=== PATIENT | female | born 1950 | race African-American/Black ===

== ENCOUNTER 2017-06-23 12:39 | Inpatient (IN) | payer OTHER, BC ==
[~2017-06-23] VITALS: Ht 152.4 cm; Wt 114.3 kg
--- NOTE | ~2017-06-23 | HC ---
[facility] [place] [address] [place] [address] CONSULTATION Name: STEFFANY BHARDWAJ Room #: 456-P [facility] IN M.R.#: [id number] Admission: 06/23/17 Attend Phys: Carlos New DO Discharge: Date of : 50 Report #: [id number] THIS REPORT FOR: //name// CC: FAM unknown Carlos New REASON FOR CONSULTATION: End-stage renal disease. REASON FOR PRESENTATION: Right lower extremity swelling. HISTORY OF PRESENT ILLNESS: This is a 67-year-old with past medical history of end-stage renal disease, maintained on dialysis every Saturday, Saturday and Saturday. She has been complaining of bilateral lower extremity swelling in the last few weeks. We have been trying to resolve her edema with aggressive ultrafiltration and extra treatment. She continued to have issues with the swelling along with some dizziness, shortness of breath and lightheadedness when she finished her extra treatment on Saturday. She presented for further evaluation and management. Further evaluation revealed that she had DVT of the right lower extremity. She is being admitted to manage accordingly. ALLERGIES: 1. NIFEDIPINE. 2. PENICILLIN. 3. SULFA. MEDICATIONS: 1. Calcitriol. 2. Calcium carbonate. 3. Amlodipine. 4. Esomeprazole. PAST MEDICAL HISTORY: 1. Diabetes mellitus. 2. Status post gastric bypass surgery. 3. End-stage renal disease, maintained on hemodialysis every Saturday, Saturday and Saturday. 4. Status post colonoscopy. SOCIAL HISTORY: She denies drug or alcohol abuse. FAMILY HISTORY: Significant for diabetes mellitus. REVIEW OF SYSTEMS: GENERAL: Significant for lightheadedness, dizziness. CARDIOVASCULAR: No chest pain; however, she did have some shortness of breath. PULMONARY: Significant for shortness of breath. GASTROINTESTINAL: No nausea or vomiting. [facility] [address] [place] [address] CONSULTATION Name: STEFFANY BHARDWAJ Room #: 456-P [facility] IN M.R.#: [id number] Admission: 06/23/17 Attend Phys: Carlos New DO Discharge: Date of : 50 Report #: [id number] GENITOURINARY: No frequency, no urgency. MUSCULOSKELETAL: As per the history of present illness. SKIN: As per the history of present illness. PHYSICAL EXAMINATION: GENERAL: She is alert, oriented. VITAL SIGNS: Blood pressure 112/60; on arrival yesterday, her blood pressure was 85/49. HEAD AND NECK: No jugular venous distention. No bruit, no lymphadenopathy or thyromegaly. CHEST: Clear to auscultation bilaterally. CARDIOVASCULAR: Regular, with no rub. ABDOMEN: Soft, nontender with no hepatosplenomegaly. EXTREMITIES: Lower extremities, +2 edema. LABORATORY DATA: Laboratory values reviewed. Platelet is on the low side at 102,000. Hemoglobin is 11.1. Sodium 139, potassium 3.5 and creatinine 6.1. IMAGIN. Chest x-ray reviewed. No pulmonary edema. 2. Lower extremity venous studies reviewed, DVT present. ASSESSMENT, IMPRESSION AND PLAN: 1. End-stage renal disease. 2. Hypertension. 3. Diabetes mellitus. 4. Deep venous thrombosis. 5. Dialysis will be arranged for the patient every Saturday, Saturday and Saturday. 6. Resume outpatient medications. 7. Watch platelets and hemoglobin. 8. Anticoagulation. <ELECTRONICALLY SIGNED> By: Anastacia Gonzalez MD 06/26/17 0817 0927 1048 Anastacia Gonzalez MD /nt
--- NOTE | ~2017-06-23 | EKG ---
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1950 Requested By: Carlos New Order Number: [id number] MD: Daniel Willis Measurements Intervals [place] Rate: 93 P: 18 DE: 149 QRS: 22 QRSD: 100 T: 20 QT: 384 QTc: 478 Interpretive Statements Sinus rhythm Borderline prolonged QT interval Artifact in lead(s) I,II,aVR,aVL,aVF No previous ECG available for comparison Electronically Signed On 06-24-2017 8:09:05 CDT by Daniel Willis [email or web address] <ELECTRONICALLY SIGNED> By: Daniel Willis MD, [facility] 06/24/17 0809 1453 145 Daniel Willsi MD, [facility] /EPI
[~2017-06-23 12:39] MED LIST: ACEPHEN650 M1 RC; AMLODIPINE BESY10 MG PO; AMLODIPINE BESYL5 MG PO; APAP500 PO; CALCITRIOL0.25 MCG PO; CELEBREX 200 M200 M1 PO; DILTIAZEM ER120 M1; DILTIAZEM ER120 M1 PO; FLEXERIL PO; HYDROCODON-ACE1 EAC8 PO; HYDROCODONE-AP1 EAC6 PO; LISINOPRIL40 MG PO; LOPRESSOR25 PO; MAGNESIUM IV; MOBIC15 MG PO; NEPHROCAPS SOFT1 CAP PO; NEXIUM 40 MG CA40 M1 PO; NEXIUM2.5 MG PO; NEXIUM40 MG PO; NORVASC10 MG PO; PROTONIX40 M1 PO; RENAL TAB PO; RENVELA800 MG PO; SENSIPAR90 MG PO; TUMS PO; ZOFRAN4 MG; [UNRECOGNIZED DRUG - OTHER]
[2017-06-23 13:05] VITALS: BP 85/49
[2017-06-23 14:14] LABS: ABSOLUTE NEUTROPHILS 3.7 thou/uL (1.4-8.2); BASOPHILS 1.1 % (0.0-2.0); EOSINOPHILS 0.5 % (0.0-3.0); HEMATOCRIT 37.4 % (37.0-47.0); LYMPHOCYTES 26.4 % (24.0-44.0); MCH 36.9 pg (26.0-34.0); MCHC 32.2 g/dL (28.0-37.0); MCV 114.6 fL (80.0-100.0); PLATELET COUNT 129 thou/uL (150-400); RBC 3.26 mil/uL (4.20-5.00); RDW 17.7 % (10.5-14.5); WBC 6.2 thou/uL (4.0-11.0)
[2017-06-23 14:24] LABS: CALCIUM 8.2 mg/dL (8.5-10.1); CREATININE 5.1 mg/dL (0.6-1.0); POTASSIUM 3.2 mmol/L (3.5-5.1)
[2017-06-23 14:32] LABS: ALBUMIN 2.3 g/dL (3.4-5.0); TOTAL BILIRUBIN 0.7 mg/dL (<0.1-1.0); TOTAL PROTEIN 6.1 g/dL (6.4-8.2); TROPONIN-I 0.13 ng/mL (<0.06)
[2017-06-23 14:55] LABS: APTT 28.2 Seconds (24.5-32.8); INR 1.1; PROTIME 11.4 Seconds (9.3-11.4)
[2017-06-23 15:19] LABS: MACROCYTES 3+; POIKILOCYTOSIS 2+; POLYCHROMASIA 1+
[2017-06-23 15:20] LABS: ANISOCYTOSIS 1+; OVALOCYTES 1+; TEARDROPS FEW
[2017-06-23 15:25] VITALS: BP 85/49
[2017-06-23 16:31] VITALS: BP 106/70
[2017-06-23] MEDS ORDERED: AZATHIOPRINE50 MG PO (16:56)
[2017-06-23] MEDS ORDERED: EXCEDRIN CAPLE1 EACH PO (16:57)
[2017-06-23 19:20] VITALS: BP 92/62
[2017-06-24 04:38] VITALS: BP 78/48
[2017-06-24 06:07] LABS: HEMATOCRIT 35.3 % (37.0-47.0); HEMOGLOBIN 11.1 gm/dL (12.0-15.0); MCH 36.7 pg (26.0-34.0); MCHC 31.4 g/dL (28.0-37.0); MCV 116.7 fL (80.0-100.0); PLATELET COUNT 102 thou/uL (150-400); RBC 3.03 mil/uL (4.20-5.00); RDW 17.8 % (10.5-14.5); WBC 4.7 thou/uL (4.0-11.0)
[2017-06-24 06:27] LABS: CALCIUM 7.7 mg/dL (8.5-10.1); POTASSIUM 3.5 mmol/L (3.5-5.1)
[2017-06-24 06:28] LABS: CREATININE 6.1 mg/dL (0.6-1.0)
[2017-06-24 07:30] LABS: ABSOLUTE NEUTROPHILS 1.9 thou/uL (1.4-8.2); ANISOCYTOSIS 1+; MACROCYTES 2+; OVALOCYTES FEW
[2017-06-24 07:50] VITALS: BP 112/60
[2017-06-24 15:29] VITALS: BP 101/57
[2017-06-24] MEDS ORDERED: SENSIPAR 30 MG30 M1 PO ×2 (15:35→15:36)
[2017-06-24 20:00] VITALS: BP 73/32
[2017-06-25 04:41] VITALS: BP 85/53
[2017-06-25 06:06] LABS: HEMATOCRIT 33.1 % (37.0-47.0); HEMOGLOBIN 10.8 gm/dL (12.0-15.0); MCH 37.1 pg (26.0-34.0); MCHC 32.5 g/dL (28.0-37.0); MCV 114.1 fL (80.0-100.0); PLATELET COUNT 101 thou/uL (150-400); RDW 17.3 % (10.5-14.5); WBC 5.1 thou/uL (4.0-11.0)
[2017-06-25 06:11] LABS: CALCIUM 7.8 mg/dL (8.5-10.1)
[2017-06-25 06:12] LABS: CREATININE 4.3 mg/dL (0.6-1.0)
[2017-06-25 07:31] LABS: ABSOLUTE NEUTROPHILS 2.9 thou/uL (1.4-8.2)
[2017-06-25 07:32] LABS: ANISOCYTOSIS 1+; OVALOCYTES 1+; POIKILOCYTOSIS 1+; TEARDROPS OCCASIONAL
[2017-06-25 07:33] LABS: HYPOCHROMASIA 1+
[2017-06-25 07:58] VITALS: BP 84/53
[2017-06-25 13:09] VITALS: BP 93/58
[2017-06-25 16:10] VITALS: BP 86/56
[2017-06-25 20:00] VITALS: BP 85/54
[2017-06-26 03:41] VITALS: BP 97/65
[2017-06-26 05:45] LABS: HEMATOCRIT 33.7 % (37.0-47.0); HEMOGLOBIN 10.9 gm/dL (12.0-15.0); MCH 36.8 pg (26.0-34.0); MCHC 32.3 g/dL (28.0-37.0); PLATELET COUNT 100 thou/uL (150-400); RBC 2.96 mil/uL (4.20-5.00); RDW 17.5 % (10.5-14.5); WBC 6.3 thou/uL (4.0-11.0)
[2017-06-26 06:10] LABS: CREATININE 6.2 mg/dL (0.6-1.0); POTASSIUM 4.6 mmol/L (3.5-5.1)
[2017-06-26 07:34] LABS: ABSOLUTE NEUTROPHILS 4.3 thou/uL (1.4-8.2); ANISOCYTOSIS SLIGHT; MACROCYTES 2+; POIKILOCYTOSIS SLIGHT
[2017-06-26] MEDS ORDERED: HYDROCODON-ACE1 EAC7 PO (08:14)
[2017-06-26] MEDS ORDERED: ELIQUIS5 MG PO (08:14)
[2017-06-26 09:10] VITALS: BP 102/52
[2017-06-26 15:25] VITALS: BP 109/66
== END 2017-06-26 16:13 | DRG 299 ==
LOC: ER 12:39 → EROBS 15:14 → 4W 15:14
PROVIDERS: Family Medicine; Physician Assistant
PROC: 5A1D70Z Performance of Urinary Filtration, Intermittent, Less than 6 Hours Per Day (ICD-10-PCS; principal; 2017-06-26)
DX: I82.401 Acute embolism and thrombosis of unspecified deep veins of right lower extremity (principal); N18.6 End stage renal disease; I12.9 Hypertensive chronic kidney disease with stage 1 through stage 4 chronic kidney disease, or unspecified chronic kidney disease; D64.9 Anemia, unspecified; D69.6 Thrombocytopenia, unspecified; H81.10 Benign paroxysmal vertigo, unspecified ear; Z79.1 Long term (current) use of non-steroidal anti-inflammatories (NSAID); Z79.82 Long term (current) use of aspirin; Z88.2 Allergy status to sulfonamides; Z88.8 Allergy status to other drugs, medicaments and biological substances; Z98.84 Bariatric surgery status; Z91.041 Radiographic dye allergy status; Z91.040 Latex allergy status
CPT/HCPCS: 10045; 32100

== ENCOUNTER 2017-06-26 14:19 | Inpatient (IN) | payer OTHER, BC ==
[~2017-06-26] VITALS: Ht 180.3 cm; Wt 114.1 kg
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
--- NOTE | ~2017-06-26 | EKG ---
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
--- NOTE | ~2017-06-26 | PLAN ---
[facility] [place] [address] [place] [address] REHAB UNIT PLAN OF CARE Name: STEFFANY BHARDWAJ Room #: 510-P [facility] IN M.R.#: [id number] Admission: 06/26/17 Attend Phys: Kraig Mcgee MD Discharge: 06/30/17 Date of : 50 Report #: [id number] THIS REPORT FOR: //name// CC: Kraig Mcgee [facility] unknown DATE OF SERVICE: 06/28/2017 PROGRESS NOTE/OVERALL PLAN OF CARE SUBJECTIVE: She was seen back in followup. Last recorded pulse 86, respirations 18, blood pressure 78/52. No focal calf swelling. Left leg appears less tender. She is working in therapies with transfers with contact guard assistance. She is ambulating 50 feet with a four-wheeled walker, min assist. In occupational therapy, lower body dressing is min assist. ASSESSMENT: 1. Medical complexity with generalized debilitation. 2. Left foot drop. 3. Left lower extremity deep venous thrombosis. 4. Benign positional vertigo, which has improved/resolved. 5. End-stage renal disease, on hemodialysis. 6. Gastroesophageal reflux disease. 7. Hypertension with some hypotension. PLAN: The overall plan of care is based on the preadmission screen, post-admission physician evaluation and information garnered from therapy assessments. 1. Estimated length of stay is actually going to be until Saturday. The patient specifically desires to return back home on Saturday and does have family assistance there that can check in on her. She is amenable to home healthcare. I had a discussion with the therapy team and nursing and we will work on further improvement of her functional independence and prepare for Saturday discharge. 2. Medical prognosis is overall good. 3. Anticipated interventions include the interdisciplinary acute inpatient rehabilitation program. We have the wardrobe image consultant physicians that are following as well. 4. Anticipated functional outcomes would be to further improve as far as transfers, mobility, ADLs at a walker level. 5. Discharge destination is back home with the family checking in on her and home health care. 6. Expected therapy by discipline includes PT and OT 1-1/2 hours per day each five days a week throughout the duration of the acute inpatient rehabilitation stay. [address] [address] REHAB UNIT PLAN OF CARE Name: STEFFANY BHARDWAJ Room #: 510-P DIS IN M.R.#: [id number] Admission: 06/26/17 Attend Phys: Kraig Mcgee MD Discharge: 06/30/17 Date of : 50 Report #: [id number] ADDENDUM: The patient did miss some therapies on 06/27/2017 secondary to dialysis. <ELECTRONICALLY SIGNED> By: Kraig Mcgee MD 07/03/17 1216 0921 0954 Kraig Mcgee MD /nt
[~2017-06-26 14:19] MED LIST changes: +AZATHIOPRINE50 MG PO; +ELIQUIS5 MG PO; +EXCEDRIN CAPLE1 EACH PO; +HYDROCODON-ACE1 EAC7 PO; +SENSIPAR 30 MG30 M1 PO
[2017-06-26 19:25] VITALS: BP 86/49
[2017-06-27 05:21] LABS: CALCIUM 8.3 mg/dL (8.5-10.1); CREATININE 5.6 mg/dL (0.6-1.0); POTASSIUM 4.5 mmol/L (3.5-5.1)
[2017-06-27 05:49] LABS: HEMATOCRIT 33.2 % (37.0-47.0); HEMOGLOBIN 10.7 gm/dL (12.0-15.0); MCH 36.6 pg (26.0-34.0); MCHC 32.2 g/dL (28.0-37.0); MCV 113.7 fL (80.0-100.0); RBC 2.92 mil/uL (4.20-5.00); RDW 17.5 % (10.5-14.5); WBC 6.4 thou/uL (4.0-11.0)
[2017-06-27 07:48] VITALS: BP 97/64
[2017-06-27 11:15] LABS: TROPONIN-I 0.04 ng/mL (<0.06)
[2017-06-27 11:33] LABS: FOLIC ACID 5.1 ng/mL (8.6-58.9)
[2017-06-27 20:00] VITALS: BP 70/46
[2017-06-27 20:36] VITALS: BP 75/48
[2017-06-27 23:00] VITALS: BP 78/52
[2017-06-28 08:30] VITALS: BP 87/57
[2017-06-28] MEDS ORDERED: ELIQUIS5 MG PO (10:41)
[2017-06-28] MEDS ORDERED: ANTIVERT25 MG PO (10:41)
[2017-06-28] MEDS ORDERED: MIDODRINE HCL 55 M1 PO (10:41)
[2017-06-28] MEDS ORDERED: COLACE100 MG PO (10:41)
[2017-06-28 16:00] VITALS: BP 87/57
[2017-06-28 17:45] VITALS: BP 87/57
[2017-06-28 20:33] VITALS: BP 78/47
[2017-06-29 07:45] VITALS: BP 136/66
[2017-06-29 11:30] VITALS: BP 128/77
[2017-06-29 17:00] VITALS: BP 104/57
[2017-06-29 20:00] VITALS: BP 75/47
[2017-06-30 09:10] VITALS: BP 89/59
== END 2017-06-30 12:27 | disposition home health service (06) | DRG 947 ==
PROVIDERS: Physical Medicine & Rehabilitation
PROC: 5A1D70Z Performance of Urinary Filtration, Intermittent, Less than 6 Hours Per Day (ICD-10-PCS; principal; 2017-06-27)
PROC: 5A1D70Z Performance of Urinary Filtration, Intermittent, Less than 6 Hours Per Day (ICD-10-PCS; 2017-06-28)
DX: R53.81 Other malaise (principal); N18.6 End stage renal disease; I82.402 Acute embolism and thrombosis of unspecified deep veins of left lower extremity; I13.11 Hypertensive heart and chronic kidney disease without heart failure, with stage 5 chronic kidney disease, or end stage renal disease; M21.372 Foot drop, left foot; H81.10 Benign paroxysmal vertigo, unspecified ear; K21.9 Gastro-esophageal reflux disease without esophagitis; I95.9 Hypotension, unspecified; E11.22 Type 2 diabetes mellitus with diabetic chronic kidney disease; D64.9 Anemia, unspecified; D69.6 Thrombocytopenia, unspecified; I48.91 Unspecified atrial fibrillation; Z60.2 Problems related to living alone; Z99.2 Dependence on renal dialysis; Z98.84 Bariatric surgery status; Z91.040 Latex allergy status; Z88.0 Allergy status to penicillin; Z88.2 Allergy status to sulfonamides; Z88.8 Allergy status to other drugs, medicaments and biological substances; Z91.048 Other nonmedicinal substance allergy status; Z79.899 Other long term (current) drug therapy; I73.00 Raynaud's syndrome without gangrene
CPT/HCPCS: 10112; 32100

== ENCOUNTER → 2018-11-04 | Outpatient (CLI) | payer OTHER, BC ==
[~2018-11-04] MED LIST changes: +ANTIVERT25 MG PO; +COLACE100 MG PO; +MIDODRINE HCL 55 M1 PO
== END ==
LOC: SPEC 08:07
DX: L98.491 Non-pressure chronic ulcer of skin of other sites limited to breakdown of skin (principal)

== ENCOUNTER → 2019-10-27 | Outpatient (CLI) | payer OTHER, BC | LOC: SJCVCIMAG 07:23 | PROVIDERS: ATTEND Internal Medicine | DX: I08.3 Combined rheumatic disorders of mitral, aortic and tricuspid valves (principal); I27.20 Pulmonary hypertension, unspecified; R94.31 Abnormal electrocardiogram [ECG] [EKG]; I12.0 Hypertensive chronic kidney disease with stage 5 chronic kidney disease or end stage renal disease; N18.6 End stage renal disease; E78.5 Hyperlipidemia, unspecified; I82.4Y2 Acute embolism and thrombosis of unspecified deep veins of left proximal lower extremity; Z79.899 Other long term (current) drug therapy ==

== ENCOUNTER 2019-11-17 16:35 | Inpatient (IN) | payer OTHER, BC ==
[~2019-11-17] VITALS: Ht 175.3 cm; Wt 105.7 kg
[2019-11-17 16:39] VITALS: BP 96/80
[2019-11-17] MEDS ORDERED: ELIQUIS2.5 MG PO (17:10)
[2019-11-17] MEDS ORDERED: MIDODRINE HCL10 MG PO (17:11)
[2019-11-17] MEDS ORDERED: SENSIPAR 30 MG30 MG PO (17:12)
[2019-11-17 19:07] LABS: ABSOLUTE NEUTROPHILS 4.7 thou/uL (1.4-8.2); BASOPHILS 0.4 % (0.0-2.0); EOSINOPHILS 0.2 % (0.0-3.0); HEMATOCRIT 33.3 % (37.0-47.0); HEMOGLOBIN 11.1 gm/dL (12.0-15.0); LYMPHOCYTES 13.9 % (24.0-44.0); MCH 36.7 pg (26.0-34.0); MCHC 33.2 g/dL (28.0-37.0); MCV 110.6 fL (80.0-100.0); MONOCYTES 7.1 % (1.0-8.0); PLATELET COUNT 194 thou/uL (150-400); POLYS 78.4 % (36.0-66.0); RBC 3.01 mil/uL (4.20-5.00); RDW 15.6 % (10.5-14.5)
[2019-11-17 19:13] LABS: CALCIUM 8.8 mg/dL (8.5-10.1); CREATININE 5.4 mg/dL (0.6-1.0)
[2019-11-17 19:15] LABS: APTT 27.2 Seconds (24.5-32.8); INR 1.1; PROTIME 11.5 Seconds (9.3-11.4)
[2019-11-17 19:26] LABS: POTASSIUM 6.5 mmol/L (3.5-5.1)
[2019-11-17 20:35] VITALS: BP 92/53
--- NOTE | 2019-11-17 20:47 | NUR ---
tried to call report. nurse not available.
--- NOTE | 2019-11-17 21:13 | NUR ---
tried to call report nurse not available.
--- NOTE | 2019-11-18 05:50 | NUR ---
Pt. arrived to the unit from the emergency room accompanied by staff. She is alert and oriented. VSS, Admission assessment and history is completed. Bed alarm is on.
--- NOTE | 2019-11-18 05:54 | NUR ---
Pt. has been having loose stools from kayexalate that was given down in the emergency room. Pt. asking for some imodium. Spoke with Ivanna MCCRARY and she does not want to give pt. anything for loose stools as it will interfere with the absorption. Pt. also having pain in the right leg. Fentanyl given (see emar). Fentanyl not really helping with her pain. Ivanna MCCRARY called and notified (see orders in cpoe). Extra dose of fentanyl was given per order. Pt. resting quietly in bed at this time. Bed alarm is on. Soft splint in place to right upper leg.
[2019-11-18 06:27] LABS: CALCIUM 8.9 mg/dL (8.5-10.1)
[2019-11-18 06:33] LABS: HEMATOCRIT 30.2 % (37.0-47.0); MCH 36.6 pg (26.0-34.0); MCHC 33.1 g/dL (28.0-37.0); MCV 110.7 fL (80.0-100.0); RBC 2.73 mil/uL (4.20-5.00); RDW 15.5 % (10.5-14.5); WBC 5.1 thou/uL (4.0-11.0)
[2019-11-18 07:01] LABS: POTASSIUM 4.8 mmol/L (3.5-5.1)
--- NOTE | 2019-11-18 07:41 | EKG ---
[facility] [place] [address] [place] [address] ELECTROCARDIOGRAM REPORT Name: STEFFANY BHARDWAJ Room #: 459- ADM IN M.R.#: [id number] Admission: 11/17/19 Attend Phys: Negrito Kidd MD Discharge: Date of : 50 Report #: [id number] THIS REPORT FOR: cc: Ge Lewis MD, Michael D. 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
[2019-11-18 08:00] VITALS: BP 123/95
--- NOTE | 2019-11-18 12:03 | NUR ---
PT ADMITTED RELATED TO FALL, TIB FRACTURE, ESRD, HI K+. CM REVIEWED CHART AND SPOKE WITH CARE TEAM. CM CALLED AND SPOKE WITH PT AT BEDSIDE THIS DAY. PT APPEARED TO BE A&O X4. CM ROLE INTRODUCED. PT INDICATED SHE LIVES ALONE IN A RAISED RANCH HOUSE WITH 4 STEPS TO ENTER HOUSE THROUGH FRONT DOOR AND A CHAIR LIFT FROM BASEMENT TO KITCHEN. PT INDICATED SHE HAS A 4WW TO ASSIST WITH MOBILITY. 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 PT INDICATED SHE HAD HH IN THE PAST BUT NOTHING RECENTLY. PT TO GO TO OR WITH [facility] AT 1600. IF SNF IS NEEDED SHE WOULD BE RECPTIVE TO HAVING REFERRALS SENT TO [facility]. CM TO FOLLOW INDICIATED WITH DC PLANNING.
--- NOTE | 2019-11-18 13:12 | NUR ---
Assumed pt care at 7am.Pt in bed resting and very particular about her care. Assessment completed.vss.C/o rt leg pain.Pain shot given with partial relief. Dr Teague and Carmen here ,order noted.Pt will be going for surgery at 1600 today.Hemodialysis will be done after surgery.Pt signed consent and kept npo. Pt brother called and updates given.Pt in bed resting at present. Will continue to [facility].
--- NOTE | 2019-11-18 20:50 | NUR ---
2030 PT TO FLOOR FROM SURGERY, AWAKE ALERT AND ORIENTED WITH NO COMPLAINTS, ASKING FOR FOOD.
[2019-11-18 21:21] VITALS: BP 104/54
[2019-11-18 21:42] VITALS: BP 79/34
[2019-11-18 22:21] VITALS: BP 96/51
[2019-11-19 00:15] VITALS: BP 91/52
[2019-11-19 02:05] VITALS: BP 99/45
[2019-11-19 04:04] VITALS: BP 109/69
[2019-11-19 07:57] VITALS: BP 95/56
[2019-11-19 16:30] VITALS: BP 97/53
--- NOTE | 2019-11-19 18:43 | NUR ---
SNF referrals sent to [facility] and [facility] this evening. Pt was seen by therapy today. Pt to dialyze tomorrow. Possible dc ready this weekend. 124c on the chart. Will follow up with both referrals in the am along with the pt.
[2019-11-19 19:36] VITALS: BP 92/47
--- NOTE | 2019-11-19 21:56 | NUR ---
1900 ASSUMED CARE OF PT AFTER BEDSIDE REPORT. 1999 BASELINE ASSESSMENT COMPLETED. PT RESTING IN BED WITH EYES CLOSED, AWAKENS EASILY AND ANSWERS QUESTIONS APPROPRIATELY, 2 FINGER WITH ROOM BETWEEN CASTING AND R THIGH, NO PRESSURE POINTS, PT WITH CAP REFILL TO RLE <3 SEC, ABLE TO MOVE TOES AND SENSATION INTACT, PT DOES NOT WISH TO STAND AT THIS TIME, WILL CONTINUE TO MONITOR, FALL PRECAUTIONS IN PLACE, AND SCD TO LLE.
[2019-11-20 03:57] VITALS: BP 97/55
[2019-11-20 07:45] VITALS: BP 92/55
--- NOTE | 2019-11-20 08:18 | HC ---
[facility] [place] [address] [place] [address] CONSULTATION Name: STEFFANY BHARDWAJ Room #: 443-P ADM IN .R.#: [id number] Admission: 11/17/19 Attend Phys: Negrito Kidd MD Discharge: Date of : 50 Report #: [id number] THIS REPORT FOR: cc: Ge Lewis MD, Michael D. MD Al-Absi, Ahmed I. MD ~ CC: Ge Kidd DATE OF SERVICE: 11/18/2019 REASON FOR CONSULTATION: End-stage renal disease. REASON FOR PRESENTATION: Post fall. HISTORY OF PRESENT ILLNESS: A 69-year-old who is maintained on hemodialysis every Saturday, Saturday and Saturday. She presented post fall yesterday and was found to have tibia, fibula fracture and was admitted for further evaluation and management. She is currently being followed by Orthopedic Surgery. She has history of DVT and is maintained on long-term anticoagulation. I was consulted to manage the patient's end-stage renal disease as she is due to have her dialysis today. I am well aware of her previous medical issues given the fact that she is a dialysis patient of myself. PAST MEDICAL HISTORY: Extensive and include the followin. End-stage renal disease. Maintained on hemodialysis every Saturday, Saturday and Saturday. 2. Deep venous thrombosis. 3. Chronic hypotension. 4. Diabetes mellitus. PAST SURGICAL HISTORY: 1. ____, gastric bypass surgery. 2. Remote history of an open reduction and internal fixations of the left elbow. SOCIAL HISTORY: No drug or alcohol abuse. FAMILY HISTORY: Significant for diabetes and heart conditions. ALLERGIES: LATEX AND NIFEDIPINE. REVIEW OF SYSTEMS: GENERAL: No fever or chills. CARDIOVASCULAR: No chest pain or palpitation. NECK: Supple. [facility] [address] [place] [address] CONSULTATION Name: STEFFANY BHARDWAJ Room #: 443-P [facility] IN [facility]#: [id number] Admission: 11/17/19 Attend Phys: Negrito Kidd MD Discharge: Date of : 50 Report #: [id number] PULMONARY: No cough or hemoptysis. GASTROINTESTINAL: No nausea or vomiting. MUSCULOSKELETAL: As per the history of present illness. HOME MEDICATIONS: Include the followin. Sensipar. 2. Eliquis. 3. Midodrine. PHYSICAL EXAMINATION: GENERAL: The patient is alert, oriented, in no apparent distress. VITAL SIGNS: Blood pressure is 90/50. HEAD AND NECK: No jugular venous distention. CHEST: No crackles. CARDIOVASCULAR: No rub. ABDOMEN: Soft, nontender. LOWER EXTREMITIES: Dressing applied over the right lower extremity with some abrasion of the anterior ____. LABORATORY DATA: Hemoglobin is 10. Sodium 140, potassium is 4.8, it was 6.5 yesterday, creatinine is 6, BUN is 16. Chest x-ray with elevated right hemidiaphragm. ASSESSMENT AND PLAN: 1. End-stage renal disease. 2. Fracture of right tibia and fibula. 3. Chronic hypotension. 4. We will arrange for the patient to have her usual routine hemodialysis today. 5. Resume her midodrine for hypotension. 6. Orthopedic evaluation. 7. We will continue to follow during her hospital stay. <ELECTRONICALLY SIGNED> By: Anastacia Gonzalez MD 11/20/19 0818 0837 1 Anastacia Gonzalez MD /nt
--- NOTE | 2019-11-20 11:15 | NUR ---
Salomón Monge and Tonya both reviewing referral this am for dc this afternoon after dialysis. Chart copy in progress and 124 and covid neg test in the packet.
[2019-11-20 11:43] LABS: MCH 36.4 pg (26.0-34.0); MCV 109.9 fL (80.0-100.0); RBC 2.19 mil/uL (4.20-5.00)
[2019-11-20 11:45] LABS: MCHC 33.2 g/dL (28.0-37.0); RDW 14.8 % (10.5-14.5); WBC 4.3 thou/uL (4.0-11.0)
[2019-11-20 14:14] LABS: HEMATOCRIT 24.8 % (37.0-47.0); HEMOGLOBIN 8.3 gm/dL (12.0-15.0); MCH 37.1 pg (26.0-34.0); MCHC 33.5 g/dL (28.0-37.0); MCV 110.8 fL (80.0-100.0); RBC 2.24 mil/uL (4.20-5.00); RDW 14.9 % (10.5-14.5); WBC 4.9 thou/uL (4.0-11.0)
[2019-11-20 14:26] LABS: CALCIUM 7.7 mg/dL (8.5-10.1); MAGNESIUM 1.6 mg/dL (1.8-2.4); POTASSIUM 3.9 mmol/L (3.5-5.1)
--- NOTE | 2019-11-20 16:23 | NUR ---
[facility] IS ABLE TO ACCEPT PT FOR ADMISSION TOMORROW. CM SPOKE WITH DUNIA REILLY THEY NEEDED SOME ADDITIONAL INFO TO SET PT UP WITH SERVICES FOR INHOUSE DIALYSIS. CM FAXED CHEST X RAY TO THEM. THEY [facility] IF [facility] A HEP B PANEL ON FILE. RUBIO CAN BE REACHED AT TO SET UP TRANSPORT ORDERS WILL NEED TO BE FAXED TO . CALL REPORT TO .
--- NOTE | 2019-11-20 18:13 | NUR ---
PT CARE ASSUMED AT 0700. A&Ox4. PT DIALYSED TODAY WITH 1000ML TAKEN OFF. ACCESS BRUIT AND THRILL FELT. PT WILL ASK TO REPOSITION R. LEG WITH MINIMAL PAIN MEDICATION. PAIN MANAGED WELL. PT MEDICALLY STABLE TO DISCHARGE. NEEDS DIALYSIS SET UP AND THEN CAN GO TO [facility]. IV PATENT WITH NO REDNESS OR EDEMA, SALINE LOCKED. S[facility] IM PLACE. GOOD CAP REFILL ON SURGERY LEG. PT/OT ON BOARD. FALL PROTOCOL IN PLACE. CALL LIGHT IN REACH
[2019-11-20 20:03] VITALS: BP 135/59
--- NOTE | 2019-11-21 04:28 | NUR ---
PATIENT ALERT AND ORIENTED X4. C/O PAIN AND RECEIVED MEDICATION X1 WITH RELIEF. PATIENT HAS NOT WORKED WITH PT PER AM NURSE SINCE HER SURGERY 11/16. DIALYSIS M/W/F AND REMAINS ANURIC. RESTING QUIETLY AT TIME OF NOTE. WILL MONITOR.
[2019-11-21 08:34] VITALS: BP 95/57
--- NOTE | 2019-11-21 12:30 | NUR ---
Assumed care of pt at 0700. Pain controlled with prn pain meds. Dialysis MWF. NWB RLE. Pt will discharge to [place]. Awaiting discharge orders. Call light within reach. Will continue to monitor.
[2019-11-21 17:22] VITALS: BP 91/46
[2019-11-21 22:27] VITALS: BP 81/51
[2019-11-22 01:04] VITALS: BP 94/60
--- NOTE | 2019-11-22 03:28 | NUR ---
PATIENT ALERT AND ORIENTED X4. DIALYSIS M/W/F - [facility]. COOPERATIVE WITH CARE. DISCHARGE TO [facility] IN AM. MEDICATED X1 FOR PAIN DURING THE NIGHT. WILL MONITOR. RESTING QUIETLY.
[2019-11-22 07:49] VITALS: BP 92/58
--- NOTE | 2019-11-22 10:19 | NUR ---
Assumed care of pt at 0700. Pt a&ox4. Pain controlled with prn pain meds. Talked to watch case polisher today and stated hep B panel needed from [facility] before discharge. Discharge to [place] likely Wednesday 11/22. Dialysis MWF. Call light within reach. Fall precautions in place. Will continue to monitor.
[2019-11-22 16:00] VITALS: BP 99/58
[2019-11-22 21:00] VITALS: BP 83/47
--- NOTE | 2019-11-23 04:14 | NUR ---
PATIENT ALERT AND ORIENTED X4. C/O PAIN TO HER RIGHT LEG AND GIVEN PRN VICODIN WITH GOOD RESULTS. PATIENT SLEEPING WELL. WILL HAVE DIALYSIS TODAY AND WILL BE GOING TO REHAB. AWAITING FOR HEP B PANEL RESULTS TO BE FAXED FROM [facility] FOR TRANSFER TO [place]. WILL MONITOR.
[2019-11-23 06:08] LABS: HEMATOCRIT 26.8 % (37.0-47.0); MCH 36.7 pg (26.0-34.0); MCHC 33.4 g/dL (28.0-37.0); MCV 109.7 fL (80.0-100.0); RBC 2.44 mil/uL (4.20-5.00); RDW 14.9 % (10.5-14.5); WBC 3.4 thou/uL (4.0-11.0)
[2019-11-23 06:20] LABS: CALCIUM 8.4 mg/dL (8.5-10.1); CREATININE 7.1 mg/dL (0.6-1.0); POTASSIUM 4.5 mmol/L (3.5-5.1)
--- NOTE | 2019-11-23 15:14 | NUR ---
ON-GOING ASSESSMENT: ALEE REVIEWED CHART AND SPOKE WITH RUBIO AT [facility] WHO REPORTS THAT [facility] STILL NEEDS THE HEP B PANEL BEFORE ACCEPTING PATIENT. ALEE REACHED OUT TO [facility] TO GET HEP B PANDEL AND 2728 FORM THAT [facility] REQUESTED. CM THEN FAXED THAT PAPERWORK TO [facility]. ALEE THEN RECEIVED A CALL FROM STATING THAT [facility] REACHED OUT TO THEM AND THE HEP B THE RECEIVED FROM [facility] IS OUTDATED AND THEY NEED LABS WITHIN THE PAST 30 DAYS. ALEE RELAYED THAT HEP B PANEL WAS DONE HERE AND IT IS A SEND OUT LAB AND RESULTS ARE STILL PENDING. SHE ALSO REPORTS THAT THEY NEED A NEGATIVE COVID TEST FAXED TO THEM ALONG WITH SOME FLOWSHEETS TO THEIR FAX: . ALEE WILL CONTINUE TO FOLLOW.
[2019-11-23 15:21] VITALS: BP 109/56
--- NOTE | 2019-11-23 17:58 | NUR ---
ASSUMED PT AT 0715. PT IS A&OX4, VSS, BEDREST, PT RECEIVE DIALYSIS TODAY AND RESTING IN BED. PT REFUSE TO TURN WHEN ASKED BY THE NURSE. APPETITE IS FAIR NO N/V. FALL PRECAUTION IN PLACE, CALL LIGHT IN REACH WILL CONTINUE TO MONITOR.
[2019-11-23 19:52] VITALS: BP 88/53
--- NOTE | 2019-11-24 03:46 | NUR ---
ASSESSED AT START OF SHIFT 1899. PT A&OX4. PAIN CONTROLLED WITH PO PAIN MEDS. LEFT FOOT CAST C/D/I. EVENING MEDS GIVEN AND PT KRUPA IT WELL. RESTING WELL THIS SHIFT FALL PREC IN PLACE AND CALL LIGHT IN REACH. PT ANURIA HAD DIALYSIS EARLIER TODAY. WILL CONT WITH POC TILL EOS.
[2019-11-24 05:45] VITALS: BP 105/58
[2019-11-24 09:08] LABS: HAV IgM AB (ANTI-HAV IgM) Negative (Negative); HEPATITIS B SURFACE AG Negative (Negative); HEPATITIS C VIRUS AB <0.1 (0.0-0.9)
--- NOTE | 2019-11-24 10:01 | O ---
[facility] [place] [address] [place] [address] OPERATIVE REPORT Name: STEFFANY BHARDWAJ Room #: 443-P ADM IN M.R.#: [id number] Admission: 11/17/19 Attend Phys: Negrito Kidd MD Discharge: Date of : 50 Report #: [id number] THIS REPORT FOR: cc: Ge Lewis MD,Ge Hamilton,Ge Naylor MD ~ CC: Ge Kidd DATE OF SERVICE: 11/18/2019 SERVICE: Orthopedics. FACILITY: [facility]. SURGEON: Ge Hamilton MD SENIOR NETWORK SYSTEMS ENGINEER: Debra Gray. Need for assistance is large leg size, weight and habitus with the tibial fracture, needing to be held in alignment in a reduced fashion with an additional set of hands. PREOPERATIVE DIAGNOSES: 1. Closed right proximal metadiaphyseal tibia and fibula fractures. 2. Right leg laceration, status post primary repair in the Emergency Department. 3. End-stage renal disease, on hemodialysis. 4. History of anticoagulation. 5. Morbid obesity. 6. Status post previous right femoral IM nail with femoral malunion. 7. Status post previous open reduction and internal fixation, right distal tibia fracture with retained orthopedic hardware. POSTOPERATIVE DIAGNOSES: 1. Closed right proximal metadiaphyseal tibia and fibula fractures. 2. Right leg laceration, status post primary repair in the Emergency Department. 3. End-stage renal disease, on hemodialysis. 4. History of anticoagulation. 5. Morbid obesity. 6. Status post previous right femoral IM nail with femoral malunion. 7. Status post previous open reduction and internal fixation, right distal tibia fracture with retained orthopedic hardware. PROCEDURE: Closed reduction and long leg splinting of right proximal tibial shaft fracture with manipulation. [facility] [address] [place] [address] OPERATIVE REPORT Name: LUZ ELENAANISH MARSHALLSTEFFANY Serge Room #: 443-P [facility] IN [facility].#: [id number] Admission: 11/17/19 Attend Phys: Negrito Kidd MD Discharge: Date of : 50 Report #: [id number] HISTORY AND INDICATIONS: The patient is a 69-year-old female with multiple medical issues who normally ambulates with a walker and fell coming up the 4 steps from the sidewalk to her house after getting the mail yesterday. She sustained a right tibia fracture as well as a laceration of the right leg. She was seen in the Emergency Room where she underwent wound care and was placed in a knee immobilizer type of splint, was admitted for management. She has end-stage renal disease, on hemodialysis. She underwent COVID testing to confirm negativity and then she received dialysis earlier today. She was indicated for treatment of the tibia fracture. We had a discussion about treatment options and together selected a trial of nonoperative treatment. The alignment was within acceptable parameters on the CT scan and the x-ray. She had clear evidence of a rather substantial osteopenia, likely related to underlying osteopenia/osteoporosis as well as renal component with a history of end-stage renal disease. She has retained plate distally and the plate is overgrown with an assortment of old screws such that in order to adequately perform an IM nail for this acute fracture she will have to have the hardware removed and that would be quite burdensome on her metabolically as well as increased risk of infection especially with the overlying skin laceration over the anterolateral aspect of the tibia. I was concerned about the plate fixation for similar reasons for complications that might develop from surgical treatment and did not feel that plate fixation would allow for earlier weightbearing and so therefore we selected a nonsurgical treatment avenue. We will continue to follow her radiographically, she was indicated for closed reduction and splinting. Risks, benefits, alternatives, and indication of surgery discussed with her in detail. Risks include but not limited to pain, malunion, nonunion, need for further treatment and need for extended period of nonweightbearing on the right leg, possible need to convert to surgical management as well as complications related to the anesthetic care. PROCEDURE IN DETAIL: After right lower extremity was correctly identified as the operative extremity, the patient was taken to the operating room where sedation was administered without complication. We took the previous dressing down, removed the skin dressing on the laceration and it had started to become macerated. The Steri-Strips were removed, as a result that they were no longer well fixed. The skin flap itself was fixed and was secure. We performed some local wound care with alcohol and debrided the superficial blood clot along the laceration and then placed a skin protectant and then applied half inch Steri-Strips to reinforce the repair. A dry dressing was then applied to avoid any further skin maceration and this was then overwrapped and well padded. We then proceeded with placement of a long leg splint and ensured that this was very well padded with the use of additional layers of cast padding as well as ABD in the appropriate places including the heel. A long leg posterior splint [facility] [address] [place] [address] OPERATIVE REPORT Name: STEFFANY BHARDWAJ Room #: 443-P [facility] IN .R.#: [id number] Admission: 11/17/19 Attend Phys: Negrito Kidd MD Discharge: Date of : 50 Report #: [id number] with 5-inch plaster strip was applied followed by a stirrup on the medial side around the lateral ankle up to the distal thigh and then we placed a lateral stirrup from the mid thigh to the mid calf and this allowed for a gap over the lacerations, so that we may visualize the wound and perform additional wound care if it was needed. This was held in position with surgeon and 2 assistants to ensure that it was performed well and then we brought C-arm in and performed gentle reduction. The leg was well aligned on the coronal view. There was some extension through the fractures so we placed some flexion in the knee and then placed it on a stack of blankets to facilitate flexion through the fracture and enhance reduction. The fracture was somewhat displaced in this angle, but was satisfactory for nonoperative healing considering the risks of surgical treatment. The patient was awakened from anesthesia and taken to recovery room in stable condition. No complications. All counts were correct. <ELECTRONICALLY SIGNED> By: Ge Hamilton MD 11/24/19 1001 29 57 Ge Hamilton MD /nt
[2019-11-24 10:47] VITALS: BP 100/53
--- NOTE | 2019-11-24 12:55 | NUR ---
ON-GOING ASSESSMENT: CM REVIEWED CHART. HEP B AND HEP C LABS ARE BACKL AND CM FAXED THEM TO [facility] . ALEE CONTACTED NICK AT [facility] [phone] WHO REPORTS THEY RECEIVED EVERYTHING THEY NEED AND PATIENT HAS BEEN GIVEN A CHAIR TIME OF 1130 FOR M-W-F DAILYSIS AND CAN BE STARTED TOMORROW 11/25/19 BUT NEEDS TO BE THERE AT 11. ALEE CONTACTED RUBIO AT [facility] TO NOTIFY HER OF THIS INFORMATION. RUBIO STATES SHE WILL MAKE SURE THEY HAVE EVERYTHING THEY NEED BUT CAN TAKE PATIENT TODAY. ALEE NOTIFIED HER [facility] WILL FAX D/C ORDERS TO THEM AND [facility] AND TO COORDINATE WITH HER PICKUP TIME FOR TODAY. CHART COPY HAS BEEN ORDERED. ALEE NOTIFIED PATIENT AND PROVIDED BEDSIDE RN WITH THE NUMBER FOR REPORT. [facility] STATING SHE WILL CONTACT FAMILY.
--- NOTE | 2019-11-24 14:55 | NUR ---
PT DISCHARGING TODAY TO [facility] FAXED DC ORDERSS/SUMMARY TO FACILITY SPOKE WITH TERRY IN ADM SHE RECEIVED ORDERS AND ARRANGED TRANSPORT BY [facility] FOR 1630 TODAY. NOTIFIED UNIT AND LEFT VM WITH PT'S BROTHER (LEN) OF DC AND TIME OF TRANSPORT. CHART COPY PER US RN TO CALL REPORT TO [phone]. ALSO PT IS TO HAVE DIALYSIS AT [facility] FAXED DC ORDERS/SUMMARY AND RECEIVED CONFIRMATION.
--- NOTE | 2019-11-24 15:42 | NUR ---
PT IS A&OX4, VSS, MAX ASSIST, AND ANURIC. PT IS ON A RENAL DIET AND HAS NO WOUNDS. PT IS BEING DISCHARGE TODAY TO A FACILITY. PT HAS DIALYSIS M/W/F. FALL PRECAUTIONS IN PLACE, WILL CONTINUE TO MONITOR.
--- NOTE | 2019-11-24 16:53 | NUR ---
PATIENT HAS RIGHT LEG WITH SOFT CAST IN PLACE, MIGUEL WRAP IN PLACE. PATIENT ALERT AND ORIENTED. DIALIZED YESTERDAY, MWF. PATIENT C/O PAIN WITH RIGHT LEG, HYDROCODONE 10MG 1 TABLET GIVEN 09/27. PATIENT WILL DISCHARGE TO [facility] AROUND 1630. IV REMOVED FROM LEFT FOREARM. REPORT WILL BE CALLED BY PAPITO/EMILY. I AGREE WITH NURSING ASSESSMENT DONE BY PAPITO/EMILY.
[2019-11-24 17:06] LABS: HEP B SURFACE Ab(ANTI-HBS Non Reactive (()); HEPATITIS B SURFACE AG Negative (Negative)
[2019-11-24 18:15] VITALS: BP 118/63
[2019-11-24 19:06] VITALS: BP 87/54
== END 2019-11-24 20:55 | DRG 562 ==
LOC: ER 16:35 → 4W 19:50 → 4S 19:50 → EROBS 19:50 → 4W 22:01 → 4S 11-18 19:13
PROVIDERS: Emergency Medicine; Hospitalist; Internal Medicine; Nurse Practitioner Family; ADMIT Surgery; ATTEND Surgery
PROC: 0HQKXZZ Repair Right Lower Leg Skin, External Approach (ICD-10-PCS; principal; 2019-11-17)
PROC: 0QSGXZZ Reposition Right Tibia, External Approach (ICD-10-PCS; principal; 2019-11-17)
PROC: 5A1D70Z Performance of Urinary Filtration, Intermittent, Less than 6 Hours Per Day (ICD-10-PCS; 2019-11-20)
PROC: 5A1D70Z Performance of Urinary Filtration, Intermittent, Less than 6 Hours Per Day (ICD-10-PCS; 2019-11-23)
DX: S82.251A Displaced comminuted fracture of shaft of right tibia, initial encounter for closed fracture (principal); N18.6 End stage renal disease; I12.0 Hypertensive chronic kidney disease with stage 5 chronic kidney disease or end stage renal disease; S82.451A Displaced comminuted fracture of shaft of right fibula, initial encounter for closed fracture; D64.9 Anemia, unspecified; K21.9 Gastro-esophageal reflux disease without esophagitis; E11.22 Type 2 diabetes mellitus with diabetic chronic kidney disease; E87.5 Hyperkalemia; S51.011A Laceration without foreign body of right elbow, initial encounter; W10.8XXA Fall (on) (from) other stairs and steps, initial encounter; I25.10 Atherosclerotic heart disease of native coronary artery without angina pectoris; I95.9 Hypotension, unspecified; Z60.2 Problems related to living alone; Z86.718 Personal history of other venous thrombosis and embolism; Z99.2 Dependence on renal dialysis; Z79.01 Long term (current) use of anticoagulants; Z79.899 Other long term (current) drug therapy; Z91.040 Latex allergy status; Z98.84 Bariatric surgery status; Z88.0 Allergy status to penicillin; Z88.2 Allergy status to sulfonamides; Z88.8 Allergy status to other drugs, medicaments and biological substances; Z91.048 Other nonmedicinal substance allergy status; Y93.89 Activity, other specified; Y92.89 Other specified places as the place of occurrence of the external cause; Y99.8 Other external cause status; Z20.828 Contact with and (suspected) exposure to other viral communicable diseases
CPT/HCPCS: 10045; 10102; 32100; 50010; 50101; 62110; 62850; 70005

== ENCOUNTER 2019-12-31 08:26 | Inpatient (IN) | payer OTHER, BC ==
[~2019-12-31] VITALS: Ht 172.7 cm; Wt 108.9 kg
[~2019-12-31 08:26] MED LIST changes: +ELIQUIS2.5 MG PO; +MIDODRINE HCL10 MG PO; +SENSIPAR 30 MG30 MG PO
[2019-12-31 12:28] LABS: HEMATOCRIT 28.7 % (37.0-47.0); HEMOGLOBIN 9.5 gm/dL (12.0-15.0); MCH 37.7 pg (26.0-34.0); RBC 2.52 mil/uL (4.20-5.00); RDW 20.6 % (10.5-14.5); WBC 2.8 thou/uL (4.0-11.0)
[2019-12-31 12:41] LABS: CALCIUM 8.1 mg/dL (8.5-10.1); CREATININE 4.3 mg/dL (0.6-1.0); POTASSIUM 4.1 mmol/L (3.5-5.1)
[2019-12-31 12:47] LABS: ALBUMIN 1.9 g/dL (3.4-5.0); TOTAL BILIRUBIN 0.6 mg/dL (0.2-1.0); TOTAL PROTEIN 6.2 g/dL (6.4-8.2)
--- NOTE | 2019-12-31 13:54 | NUR ---
PT CAME TO CV HOLDING DIRECTLY FROM WOUND CARE FOR [facility]ERO PER DR BONILLA. PT STATES SHE WAS GIVEN HER ELIQUIS THIS MORNING. DR PÉREZ AWARE, AND CANCELS CASE. AFTER SPEAKING WITH DR BONILLA, HE WOULD LIKE HER ADMITTED FOR RIGHT HEEL ULCER WITH CELLULITIS, TO DR WANG. ADMIT ORDER PLACED IN [facility]. PT TAKEN TO ROOM 437 WITHOUT INCIDENCE.
--- NOTE | 2019-12-31 15:21 | NUR ---
PT CAME TO ROOM 437 FROM CV HOLDING ASSIST XS 4 TO BED FROM CART. V.S 97.7 18 84 111/66 O2 SAT 93% RA. WEIGHT = 241.17 HEIGHT 5'8 COVID 19 TEST COMPLETED LEFT NARE TAKEN TO LAB. DR FISH AND ACIDIZER HERE EARLIER TO SEE PATIENT. PATIENT ARRIVED AT 13:44. PT ALERT XS 4 NO PAIN AT PRESENT. ROOM AIR, BS'S XS 4. PT STATES SHE IS DIAYLSIS 3 XS WEEK. SHE IS PATIENT OF DR KEARNS [facility].
[2019-12-31 16:30] VITALS: BP 102/62
[2019-12-31 19:33] VITALS: BP 110/59
--- NOTE | 2020-01-01 01:57 | NUR ---
ASSUMED CARE OF PT @2100. PT A&OX4. TYLENOL GIVEN FOR RT LEG PAIN. DRESSING IN FOOT INTACT WITH CAST. BSG CHECKED. PROVIDED APPLE JUICE AND ENCOURAGED PT TO DRINK. PT ANURIC AND HAS DIALYSIS MWF. FALL PREC IN PLACE AND CALL LIGHT IN REACH WILL CONT WITH POC TILL EOS.
[2020-01-01 04:12] VITALS: BP 100/62
[2020-01-01 06:14] LABS: HEMATOCRIT 28.3 % (37.0-47.0); HEMOGLOBIN 9.1 gm/dL (12.0-15.0); MCH 37.2 pg (26.0-34.0); MCHC 32.1 g/dL (28.0-37.0); MCV 116.1 fL (80.0-100.0); RBC 2.44 mil/uL (4.20-5.00); RDW 21.3 % (10.5-14.5); WBC 2.3 thou/uL (4.0-11.0)
[2020-01-01 06:20] LABS: PLATELET COUNT 325 thou/uL (150-400)
[2020-01-01 06:43] LABS: ALBUMIN 1.7 g/dL (3.4-5.0); CALCIUM 7.8 mg/dL (8.5-10.1); PHOSPHORUS 2.8 mg/dL (2.5-4.9); POTASSIUM 4.4 mmol/L (3.5-5.1)
[2020-01-01 06:51] LABS: CREATININE 5.3 mg/dL (0.6-1.0)
[2020-01-01 07:21] VITALS: BP 123/51
[2020-01-01 11:09] LABS: ABSOLUTE NEUTROPHILS 1.3 thou/uL (1.4-8.2); METAMYELOCYTES 2 %; NUCLEATED RBCS 1 /100WBC
[2020-01-01 11:10] LABS: ANISOCYTOSIS 2+; MACROCYTES 2+; OVALOCYTES 1+
--- NOTE | 2020-01-01 11:51 | NUR ---
PT ADMITTED REALTED TO RT HEELULCER WITH CELLULITIS. CM REVIEWED CHART AND SPOKE WITH CARE TEAM. CM CALLED AND SPOKE WITH PT OVER THE PHONE THIS AM. SHE APPEARED TO BE A&O X4. CM ROLE INTRODUED. PT INDICATED SHE HAD BEEN AT [facility] PRIOR TO ADMISSION. PT HAD BEEN HOSPITALIZED HERE WITH A FX AND DISCAHRGED TO [place] 11/24/19. PT HAD BEEN SET UP WITH DIALYSIS SERVICES AT [facility] MWF 11:30 CHAIR TIME. PT INDICATED THAT SHE DOESN'T WANT TO RETURN TO [place] ONCE MEDICALLY STABLE THAT SHE IS INTERESTED IN BEING ASSESSED FOR 5N ADMISSION. SHE STATES SHE HOPES TO RETURN HOME AFTER SOME REHAB. PRIOR TO [facility] PT HAD LIVED ALONE IN A RAISED RANCH HOUSE WITH 4 STEPS TO ENTER HOUSE THROUGH FRONT DOOR AND A CHAIR LIFT FROM BASEMENT TO KITCHEN. PT INDICATED SHE HAS A 4WW TO ASSIST WITH MOBILITY. PT INDICATED SHE HAD BEEN INDEPENDENET WITH GAIT AND ADLS SIZE STAMPER. PT HAD GONE TO [facility] MWF 10:00 CHAIR TIME PT HAD DRIVEN TO DIALYSIS SIZE STAMPER. ALEE T SHARRI INDICATED WITH DC PLANNING.
[2020-01-01 13:48] LABS: FOLIC ACID 6.3 ng/mL (8.6-58.9); TSH 3.89 uIU/mL (0.358-3.740)
--- NOTE | 2020-01-01 16:50 | NUR ---
ASSUMED CARE OF PATIENT AT APPROX. 0800. ASSESSMENT CHARTED. MEDICATIONS GIVEN PER APR. VSS; PATIENT RECIEVED DIALYSIS TODAY. BP IS STABLE; GIVEN MIDODRINE FOR MAINTENENCE. ON ABX NOW. C/O PAIN ON LOWER EXTREMITES. DRESSING C/D/I. REQUESTS TYLENOL ONLY. PATIENT STATES SHE IS "NOT IS A DIABETIC". ON BEDREST AND ENCOURAGED TO TURN OFTEN. REQUESTED FOR BRIEFS. CURRENTLY EATING; FEEDS SELF W NO ISSUES. VOICES NO NEEDS AT THIS TIME. WILL CONTINUE TO MONITOR AND FOLLOW PLAN OF CARE.
--- NOTE | 2020-01-01 18:23 | NUR ---
PATIENT CALLED OUT AT 1815 AND REPORTED PAIN AND SWELLING ON IV SITE. IV WAS DISCONTINUED STAT AND PATIENT WAS PROVIDED WITH A HOT PACK. WILL CONTINUE TO MONITOR PATIENT; IV TEAM WAS PAGED.
[2020-01-01 19:30] VITALS: BP 95/57
--- NOTE | 2020-01-01 23:07 | NUR ---
Care assumed of patient at 1915: Patient resting in bed at start of shift. Alert and oriented x4. Dressing intact to right lower extremity and right heel. Denies pain or discomfort. Barrier cream applied to right groin. Fistula present to right chest. No IV access at this time. IV team paged by day shift. Patient refuses for nursing staff to place IV without ultrasound guide. Patient refusing accuchecks. Stating she is not a diabetic and her fingers are getting sore. Patient irritable and frustrated at times. Patient was able to fall asleep early in the shift and has been resting quietly since. Will continue to monitor.
[2020-01-02 02:06] LABS: HEP B SURFACE Ab(ANTI-HBS Non Reactive (()); HEPATITIS B SURFACE AG Negative (Negative)
[2020-01-02 06:02] VITALS: BP 100/60
[2020-01-02 07:44] VITALS: BP 101/53
--- NOTE | 2020-01-02 14:48 | NUR ---
ASSUMED PT CARE THIS AM. PT VSS, A&OX4. PT HAS NO COMPLAINTS OF PAIN. PT FRUSTRATED THIS AM ABOUT NEEDING BLOOD SUGAR CHECKS. REFUSED BLOOD SUGAR CHECKS AND INSULIN. MADE AWARE AND DISCONTINUED THE ORDER. WOUND CARE COMPLETED. BARRIER CREAM APPLIED. NEW IV PLACED BY IV TEAM IN THE LEFT UPPER ARM. PT ON ROOM AIR. PT EATING WELL.
[2020-01-02 16:08] VITALS: BP 102/63
[2020-01-02 19:37] VITALS: BP 92/54
--- NOTE | 2020-01-03 02:13 | NUR ---
PATIENT ALERT AND ORIENTED X4. BM DURING THE NIGHT. RIGHT TESSIO DRESSING DRY AND INTACT. PATIENT REQUESTED TYLENOL X1, GIVEN WITH RELIEF TO HER SATISFACTION. CONTINUES TO REST HER LEG IN THE OLD CAST PREVIOUSLY WORN. PATIENT WILL BE DISCHARGED TO [facility] ANOTHER REHAB FACILITY UPON DISCHARGE. ANURIC. RESTING QUIETLY. WILL MONITOR.
[2020-01-03 03:50] VITALS: BP 73/38
[2020-01-03 06:23] LABS: CALCIUM 8.2 mg/dL (8.5-10.1); POTASSIUM 4.3 mmol/L (3.5-5.1)
[2020-01-03 07:26] VITALS: BP 104/59
[2020-01-03 08:55] LABS: CHOLESTEROL 123 mg/dL (<200); HDL CHOLESTEROL 27 mg/dL (>40); LDL CHOLESTEROL 69 mg/dL (<100); TC:HDL 4.6 Ratio (Not establshd); TRIGLYCERIDE 135 mg/dL (<150); VLDL 27 mg/dL (<40)
--- NOTE | 2020-01-03 13:59 | NUR ---
PT CARE ASSUMED AT 0700. A&Ox4. PT CONTINUES TO REFUSE TO GET OUT OF BED. CONSULT CALLED TO TO SEE PT A FOLLOW UP FOR TIB/FIB FRACTURE. PT CONTINUES TO REST R.LEG IN OLD CAST. ANGIOGRAM PLANNED FOR TOMORROW AND THEN REHAB POSSIBLY 5N AFTER. TESSIO IN PLACE DRESSING DRY AND INTACT. VITAMINE B12 SHOTS STARTED TODAT 02/22. PT MORE RELAXED AND NOT NERVOUSE. DRESSING CHANGE COMPLEETED. IV PATENT WITH NO REDNESS OR EDEMA, SALINE LOCKED. DIALYSIS MO,SAT,SAT. FALL PROTOCOL IN PLACE. CALL LIGHT IN REACH. WILL CONTINUE TO MONITOR.
[2020-01-03 15:25] VITALS: BP 101/56
[2020-01-03 19:05] VITALS: BP 83/47
[2020-01-03 22:00] VITALS: BP 92/51
--- NOTE | 2020-01-04 01:51 | NUR ---
PATIENT ALERT AND ORIENTED X4. BP 83/47 AT BEGINNING OF SHIFT. CONTACTED SHIRT MAKER (GREG). NO ORDER GIVEN FOR MEDICATION WANTED THIS NURSE TO TAKE BP AT 2200 AND RETURN CALL. BP 92/51 AND NO ORDER GIVEN. PATIENT WILL HAVE AORTOGRAM WITH POSSIBLE STENT PLACEMENT TODAY. HAS BEEN NPO SINCE [place]. GIVEN SWABS (4) FOR DRY MOUTH. WILL HAVE DIALYSIS TODAY.
[2020-01-04 04:20] VITALS: BP 99/65
[2020-01-04 05:48] LABS: HEMATOCRIT 26.6 % (37.0-47.0); HEMOGLOBIN 8.7 gm/dL (12.0-15.0); MCH 37.3 pg (26.0-34.0); MCHC 32.8 g/dL (28.0-37.0); MCV 113.9 fL (80.0-100.0); RBC 2.34 mil/uL (4.20-5.00); RDW 20.4 % (10.5-14.5); WBC 2.1 thou/uL (4.0-11.0)
[2020-01-04 05:57] LABS: CALCIUM 8.4 mg/dL (8.5-10.1); MAGNESIUM 2.1 mg/dL (1.8-2.4); PHOSPHORUS 3.4 mg/dL (2.5-4.9); POTASSIUM 5.2 mmol/L (3.5-5.1)
[2020-01-04 05:59] LABS: CREATININE 6.5 mg/dL (0.6-1.0)
[2020-01-04 06:01] LABS: PLATELET COUNT 249 thou/uL (150-400)
[2020-01-04 07:25] VITALS: BP 101/64
--- NOTE | 2020-01-04 11:10 | NUR ---
ASSUMED CARE AT 0700. PT IS A&0 X4. PT IS NPO SHE IS HAVING SURGERY TODAY AFTER 1 PM. PT HAS SWELLING BILATERAL ON FOOT. PT HAS IMMOBILIZER ON RIGHT LEG AND COMPLAIN OF PAIN OF HEEL. I READJUSTED IMMOBILIZER FOR LEG AND PT FELT RELIEF ON HEEL AND DENIES PAIN. IV ON LEFT UPPER ARM IS INTACT AND SHOWS NO SIGNSN OF SWELLING AND REDNESS. PO MEDICATION ARE WITHHELD DUE TO NPO AND SURGERY. VSS. PT IS EAGER TO HAVE SURGERY. FALL PRECAUTION. CALL LIGHT WITHIN REACH.
[2020-01-04 11:11] LABS: ABSOLUTE NEUTROPHILS 1.2 thou/uL (1.4-8.2); ATYPICAL LYMPHS 1 %
[2020-01-04 11:12] LABS: ANISOCYTOSIS 1+; LARGE PLATELETS OCCASIONAL; MACROCYTES 2+; POIKILOCYTOSIS SLIGHT
--- NOTE | 2020-01-04 12:09 | NUR ---
CARE TEAM INDICATED THAT PT IS TO HAVE A CT SCAN DONE THIS DAY AND AN ANGIOGRAM. ORTHO SAW PT AND PUT HER IN A KNEE IMMOBILIXING BRACE WHICH ALLOWS BETTER ACCESS TO WOUNDS. PT REMAINS NWB AT THIS TIME. 5N ASSESSED SATURDAY AND ARE FOLLOWING. PT HAD INDICATED THAT SHE WOULD PREFER TO GO TO 5N BUT IS UNDERSTANDING THAT SHE MAY NEED TO RETURN TO [facility] THEY ARE THE ONLY FACILITY WITH IN HOUSE DIALYSIS AT THIS TIME. CM TO FOLLOW INDICATED WITH DC PLANNING.
[2020-01-04 15:30] VITALS: BP 101/72
[2020-01-04 20:13] VITALS: BP 126/55
[2020-01-05 04:45] VITALS: BP 108/66
--- NOTE | 2020-01-05 08:00 | NUR ---
PT POST STENT DISTAL R TIBAL, LEFT GROIN DRESSING CDI, DIALISIS FINISHED THIS EVENING AFTER PULLING 1.5L, NO C/O PAIN, REPOSITIONING NEEDED, R HEEL DRESSING CDI, WILL CON'T TO MONITOR PER PPOC.
[2020-01-05 08:12] VITALS: BP 105/57
[2020-01-05 08:13] VITALS: BP 105/57
--- NOTE | 2020-01-05 08:21 | HC ---
[facility] [place] [address] CONSULTATION Name: STEFFANY BHARDWAJ Room #: 203-P ADM IN M.R.#: [id number] Admission: 12/31/19 Attend Phys: Abdirizak Bro MD Discharge: Date of : 50 Report #: [id number] THIS REPORT FOR: cc: Ge Lewis MD, Michael D. MD Al-Annetta,Anastacia Wright MD ~ DATE OF SERVICE: 01/01/2020 REASON FOR CONSULTATION: End-stage renal disease. REASON FOR PRESENTATION: Nonhealing right lower extremity wound and cellulitis. HISTORY OF PRESENT ILLNESS: This is a 69-year-old with past medical history of end-stage renal disease, maintained on hemodialysis every Saturday, Saturday and Saturday. She was recently hospitalized a few weeks ago for tibia and fibula fracture and ended up with some wounds on her right lower extremity. She is currently residing at the [facility]. She was evaluated by the [facility] yesterday and there was a concern that the patient is having major issues with cellulitis and nonhealing wound and was admitted for further evaluation and management. She is due to have dialysis today and I was consulted to manage her dialysis need. PAST MEDICAL HISTORY: 1. End-stage renal disease, maintained on hemodialysis every Saturday, Saturday and Saturday. 2. Hypotension. 3. Gastric bypass surgery. 4. Recent right lower extremity ____. HOME MEDICATIONS: 1. Eliquis. 2. Midodrine. 3. Sensipar. ALLERGIES: BETA IMELDA. REVIEW OF SYSTEMS: GENERAL: No fever or chills. CARDIOVASCULAR: No chest pain ____. PULMONARY: No cough or hemoptysis. ____. MUSCULOSKELETAL: As per the history of present illness. FAMILY HISTORY: Significant for diabetes mellitus. [facility] [address] [place] [address] CONSULTATION Name: STEFFANY BHARDWAJ Room #: 203-P [facility] IN [facility]#: [id number] Admission: 12/31/19 Attend Phys: Abdirizak Bro MD Discharge: Date of : 50 Report #: [id number] SOCIAL HISTORY: She resides in [facility]. PHYSICAL EXAMINATION: VITAL SIGNS: Temperature 36.6, pulse rate is 71, respiratory rate is 18, blood pressure is 123/51. HEAD AND NECK: No jugular venous distention. CHEST: Decreased air entry bilaterally. CARDIOVASCULAR: No rub detected. ABDOMEN: Soft, nontender. LOWER EXTREMITIES: Dressing applied over the right lower extremity, no edema on the left side. LABORATORY DATA: White blood cell count is 2.3, hemoglobin is 9.1. Sodium is 135, potassium is 4.4, BUN is 14, creatinine is 5.3. ASSESSMENT 1. End-stage renal disease, maintained on hemodialysis every Saturday, Saturday and Saturday. 2. Right lower extremity cellulitis and wound. 3. Wound care evaluation, orthopedic evaluation. 4. chronic hypotension. Continue midodrine. 5. Deep venous thrombosis. Continue her anticoagulation. 6. Appropriate antibiotic initiated for potential cellulitis and we will continue to follow during her hospital stay. <ELECTRONICALLY SIGNED> By: Anastacia Gonzalez MD 01/05/20 0821 [id number] Anastacia Gonzalez MD /nt
[2020-01-05] MEDS ORDERED: ADULT LOW DOSE81 MG PO (10:46)
[2020-01-05] MEDS ORDERED: OXYCODONE HCL 55 MG PO (10:50)
[2020-01-05] MEDS ORDERED: DOXYCYCLINE HY100 M3 PO (10:50)
[2020-01-05 11:24] VITALS: BP 111/72
--- NOTE | 2020-01-05 13:40 | NUR ---
PT DISCHARGING TODAY TO [facility] SKILLED STAY SPOKE WITH TERRY IN ADM SHE RECEIVED ORDERS AND ARRANGED TRANSPORT BY [facility] FOR [id number] TODAY. SHE WILL HAVE SOMEONE FROM THE FACILITY TO REFRIGERATION INSULATOR PT'S WC IF IT DOES NOT FIT IN WITH PT IN [place]. LEFT MS WITH PT'S BROTHER (LEN) OF DC AND TIME OF TRANSPORT. NURSE TO CALL REPORT TO [phone].
--- NOTE | 2020-01-05 14:30 | NUR ---
ASSESSMENT CHARTED. PT ALERT AND ORIENTED. VSS. DENIED HAVING PAIN OR DISCOMFORT. ORDERS GIVEN TO DISCHARGE PT TO SNF. REPORT CALLED IN TO THE FACILITY.
== END 2020-01-05 14:32 | DRG 270 ==
LOC: CATH 08:26 → HYPER 08:26 → TBACV 11:35 → HYPER 11:35 → 4S 12:09 → CATH 14:10 → 4S 14:10 → 4W 14:10 → HYPER 15:58 → 4W 01-01 06:32 → 4S 01-02 18:17 → 2N 01-04 16:10
PROVIDERS: Hospitalist; Internal Medicine; Nuclear Medicine Nuclear Cardiology; Nurse Practitioner; ADMIT Internal Medicine; ATTEND Internal Medicine
DX: E11.51 Type 2 diabetes mellitus with diabetic peripheral angiopathy without gangrene (principal); L89.303 Pressure ulcer of unspecified buttock, stage 3; E43 Unspecified severe protein-calorie malnutrition; N18.6 End stage renal disease; L03.115 Cellulitis of right lower limb; I12.0 Hypertensive chronic kidney disease with stage 5 chronic kidney disease or end stage renal disease; L89.610 Pressure ulcer of right heel, unstageable; L97.529 Non-pressure chronic ulcer of other part of left foot with unspecified severity; I25.10 Atherosclerotic heart disease of native coronary artery without angina pectoris; K21.9 Gastro-esophageal reflux disease without esophagitis; I95.1 Orthostatic hypotension; E66.01 Morbid (severe) obesity due to excess calories; D63.8 Anemia in other chronic diseases classified elsewhere; Z60.2 Problems related to living alone; E55.9 Vitamin D deficiency, unspecified; M06.9 Rheumatoid arthritis, unspecified; I87.8 Other specified disorders of veins; E53.8 Deficiency of other specified B group vitamins; Z20.828 Contact with and (suspected) exposure to other viral communicable diseases; E11.22 Type 2 diabetes mellitus with diabetic chronic kidney disease; Z88.8 Allergy status to other drugs, medicaments and biological substances; Z86.718 Personal history of other venous thrombosis and embolism; Z88.2 Allergy status to sulfonamides; Z88.0 Allergy status to penicillin; Z88.6 Allergy status to analgesic agent; Z91.040 Latex allergy status; Z98.84 Bariatric surgery status; Z47.89 Encounter for other orthopedic aftercare; Z99.2 Dependence on renal dialysis; Z68.36 Body mass index [BMI] 36.0-36.9, adult; R53.81 Other malaise; S82.201D Unspecified fracture of shaft of right tibia, subsequent encounter for closed fracture with routine healing; S82.401D Unspecified fracture of shaft of right fibula, subsequent encounter for closed fracture with routine healing
CPT/HCPCS: 10047; 10081; 10102; 32100

== ENCOUNTER → 2020-01-19 | Outpatient (CLI) | payer OTHER, BC ==
[~2020-01-19] MED LIST changes: +ADULT LOW DOSE81 MG PO; +DOXYCYCLINE HY100 M3 PO; +OXYCODONE HCL 55 MG PO
== END ==
LOC: HYPER 09:49
PROVIDERS: ATTEND Emergency Medicine
DX: L89.610 Pressure ulcer of right heel, unstageable (principal); S81.811D Laceration without foreign body, right lower leg, subsequent encounter; N18.6 End stage renal disease; E66.01 Morbid (severe) obesity due to excess calories; I73.00 Raynaud's syndrome without gangrene; R54 Age-related physical debility; K21.9 Gastro-esophageal reflux disease without esophagitis; M06.9 Rheumatoid arthritis, unspecified; M81.0 Age-related osteoporosis without current pathological fracture; Z99.2 Dependence on renal dialysis; Z68.34 Body mass index [BMI] 34.0-34.9, adult; Z86.718 Personal history of other venous thrombosis and embolism; X58.XXXD Exposure to other specified factors, subsequent encounter

== ENCOUNTER → 2020-02-02 | Outpatient (CLI) | payer OTHER, BC | LOC: HYPER 09:39 | PROVIDERS: ATTEND Emergency Medicine | DX: L89.610 Pressure ulcer of right heel, unstageable (principal); S81.811D Laceration without foreign body, right lower leg, subsequent encounter; N18.6 End stage renal disease; E66.01 Morbid (severe) obesity due to excess calories; I73.00 Raynaud's syndrome without gangrene; R54 Age-related physical debility; K21.9 Gastro-esophageal reflux disease without esophagitis; M06.9 Rheumatoid arthritis, unspecified; M81.0 Age-related osteoporosis without current pathological fracture; Z99.2 Dependence on renal dialysis; Z68.34 Body mass index [BMI] 34.0-34.9, adult; Z86.718 Personal history of other venous thrombosis and embolism; X58.XXXD Exposure to other specified factors, subsequent encounter ==

== ENCOUNTER 2020-02-25 12:04 | Inpatient (IN) | payer OTHER ==
[2020-02-25] VITALS (17 sets, daily range): BP systolic 68–99; BP diastolic 41–56
[~2020-02-25] VITALS: Ht 172.7 cm; Wt 97.0 kg
--- NOTE | 2020-02-25 14:11 | NUR ---
VAT TEAM CONSULTED FOR CVAD, WAITING FOR LAB DRAWS, PT ON BLOOD THINNER. PIV STARTED. DISCUSSED CVAD WITH PT AND SHE IS REFUSING JUGULAR LINE AT PRESENT. RN AND DR BETH NOTIFIED
[2020-02-25 15:46] LABS: HEMATOCRIT 46.7 % (37.0-47.0); HEMOGLOBIN 14.4 gm/dL (12.0-15.0); MCH 35.8 pg (26.0-34.0); MCHC 30.7 g/dL (28.0-37.0); MCV 116.6 fL (80.0-100.0); PLATELET COUNT 122 thou/uL (150-400); RBC 4.01 mil/uL (4.20-5.00); RDW 19.4 % (10.5-14.5); WBC 2.1 thou/uL (4.0-11.0)
[2020-02-25 15:54] LABS: CALCIUM 9.3 mg/dL (8.5-10.1); CREATININE 4.4 mg/dL (0.6-1.0)
[2020-02-25 16:03] LABS: APTT 27.8 Seconds (24.5-32.8); INR 1.1; PROTIME 11.1 Seconds (9.3-11.4)
[2020-02-25 16:11] LABS: ALBUMIN 2.6 g/dL (3.4-5.0); TOTAL BILIRUBIN 1.2 mg/dL (0.2-1.0)
[2020-02-25 16:14] LABS: ABSOLUTE NEUTROPHILS 1.5 thou/uL (1.4-8.2); ANISOCYTOSIS 1+; MACROCYTES 1+
--- NOTE | 2020-02-25 17:40 | NUR ---
VAT CALLED TO ED PT FINALLY AGREED TO CVAD PLACEMENT. PT'S LABS,MEDS,HX,ORDER AND CONSENT VERIFIED. LIJ WAS WIDELY PATENT WITH USG. VESSEL ACCESSED WITH NEEDLE AND GUIDEWIRE BUT THEN UNABLE TO PASS INTRODUCER AND CATHETER. MEETING OBSTRUCTION. CVAD STOPPED.ER NOTIFIED AND HE CONSULTED IR FOR TOMORROW. PT HAS PIV AT PRESENT
--- NOTE | 2020-02-25 21:44 | NUR ---
PT ARRIVAL TO UNIT VIA CART FROM ED, ON RA, NO GTTS, PLACED ON ICU BED AND MONITOR. A&OX3, ABLE TO GIVE HISTORY, DENIES PAIN EXCEPT FOR DISCOMFORT AROUND WOUND SITES.
[2020-02-26] VITALS (116 sets, daily range): BP systolic 59–112; BP diastolic 30–67
--- NOTE | 2020-02-26 05:30 | NUR ---
pt continues to be oriented x3, sleepy but rousable. bp low, call to gui hunt to discuss status, no return page from [facility]. orders recieved to give albumin and 500ns bolus. Ivanna aware that pt only has 22g and is an extremely difficult stick, ir consult for line pending. this rn told to infuse albumin and ns at whaever rate will keep line intact.
[2020-02-26 05:37] LABS: HEMATOCRIT 37.9 % (37.0-47.0); MCH 36.2 pg (26.0-34.0); MCHC 31.8 g/dL (28.0-37.0); MCV 113.8 fL (80.0-100.0); RBC 3.33 mil/uL (4.20-5.00); RDW 19.5 % (10.5-14.5)
[2020-02-26 05:38] LABS: CALCIUM 8.4 mg/dL (8.5-10.1)
[2020-02-26 05:42] LABS: HEMOGLOBIN 12.1 gm/dL (12.0-15.0)
--- NOTE | 2020-02-26 06:17 | NUR ---
NOTIFIED MARLON OF CONSISTENTLY LOW BP WITH NO RESPONSE TO MIDODRINE. STILL NO RETURN PAGE FROM R[facility], UNABLE TO RUN ANY FLUIDS QUICKLY DUE TO LIMITED IV ACCESS. ORDERS RECIEVED FOR LEVOPHED AND TO CONSULT IV TEAM. IR ALSO CALLED AND ASKED THAT IV TEAM TRY AGAIN BEFORE IR INTERVENES.
--- NOTE | 2020-02-26 14:18 | NUR ---
ASSESSMENT: CM REVIEWED CHART. PT HAS BEEN AT [facility] HERE RECENTLY AND WAS DISCHARGED TO [facility] SNF WHERE SHE WAS GETTING DIALYSIS MWF 1130 THROUGH [facility]. PRIOR TO THAT PT WAS FROM HOME AND GETTING DIALYSIS AT [facility]. PT WAS AT THE WOUND CLINIC AND WAS ADMITTED DUE TO CONCERNS FOR HYPOTENSION AND DEHYDRATION. PT ALSO HAS A COVID TEST COMPLETED WHICH CAME BACK POSITIVE. PT IS IN ENHANCED ISOLATION DUE TO COVID 19. CM REACHED OUT TO PATIENTS BROTHER DONNA WHO STATES HE IS NOT WILLING TO SEND PATIENT BACK TO [facility] AND THEY ARE NOT HAPPY WITH THE CARE THERE. HE STATES THEY WANTED SOMEWHERE WITH INPATIENT DIALYSIS. CM DISCUSSED POSSIBLE ALTERNATE OPTIONS AND HE REQUESTED A REFERRAL BE SENT TO [facility]. CM FAXED REFERRAL AND AWAITING INPUT. CM WILL CONTINUE TO FOLLOW TO ASSIST NEEDED. NO WEEKEND DISCHARGE ANTICIPATED.
--- NOTE | 2020-02-26 19:29 | NUR ---
DIALYSIS TODAY. LEVOPHED INITIATED FOR MAP LESS THAN 60. DR NUNN CONSULTED. RA.
[2020-02-27] VITALS (23 sets, daily range): BP systolic 75–124; BP diastolic 44–87
[2020-02-27 05:22] LABS: ALBUMIN 2.7 g/dL (3.4-5.0); CALCIUM 8.3 mg/dL (8.5-10.1); TOTAL BILIRUBIN 0.7 mg/dL (0.2-1.0); TOTAL PROTEIN 5.6 g/dL (6.4-8.2)
[2020-02-27 05:32] LABS: CREATININE 3.1 mg/dL (0.6-1.0); POTASSIUM 2.8 mmol/L (3.5-5.1)
[2020-02-27 05:33] LABS: BASOPHILS 0.3 % (0.0-2.0); HEMOGLOBIN 10.6 gm/dL (12.0-15.0); RBC 2.93 mil/uL (4.20-5.00)
[2020-02-27 05:37] LABS: ABSOLUTE NEUTROPHILS 1.5 thou/uL (1.4-8.2); EOSINOPHILS 0.1 % (0.0-3.0); HEMATOCRIT 32.6 % (37.0-47.0); LYMPHOCYTES 11.8 % (24.0-44.0); MCH 36.1 pg (26.0-34.0); MCHC 32.4 g/dL (28.0-37.0); MCV 111.6 fL (80.0-100.0); MONOCYTES 5.2 % (1.0-8.0); PLATELET COUNT 107 thou/uL (150-400); POLYS 82.6 % (36.0-66.0); RDW 19.5 % (10.5-14.5)
[2020-02-27 05:41] LABS: WBC 1.8 thou/uL (4.0-11.0)
[2020-02-27 07:08] LABS: ESTIMATED AVERAGE GLUCOSE < 74 mg/dL (()); GLYCOHEMOGLOBIN (HGB A1C) < 4.2 % (4.8-5.6)
[2020-02-27 07:27] LABS: ANISOCYTOSIS 2+; MACROCYTES 1+; PLATELET ESTIMATE NORMAL
--- NOTE | 2020-02-27 12:29 | NUR ---
1210 - RN WENT INTO THE PTS ROOM, PT WAS SPEAKING WITH LEN HER BROTHER WHO IS ALSO THE AUTHORIZED POINT OF CONTACT FOR THE PT. PT WANTED RN TO UPDATE, RN PROVIDED UPDATE REGARDING CURRENT CARE PLAN. LEN STATED CONCERNS REGARDING PT'S WOUND FOR R LEG WHICH HAD NO ORDER FOR CARE AT THIS TIME. RN STATED WILL FOLLOW UP WITH WOUND CARE TO RECEIVE ORDER FOR THAT WOUND. RN COMPLETED BEDSIDE WOUND CARE, AND PT DECLINED GETTING KERLIX/TAPE FOR THE LEFT FOOT, INSTEAD REQUESTED THAT RN WEDGE A COTTON INBETWEEN THE 4TH/5TH DIGIT.
--- NOTE | 2020-02-27 16:14 | HC ---
[facility] [place] [address] CONSULTATION Name: STEFFANY BHARDWAJ Room #: 236-P [facility] IN M.R.#: [id number] Admission: 02/25/20 Attend Phys: Dave Potter MD Discharge: Date of : 50 Report #: [id number] THIS REPORT FOR: cc: Ge Lewis MD, Michael D. MD Geha,Evelio Rich MD ~ DATE OF SERVICE: 02/26/2020 INFECTIOUS DISEASE CONSULTATION REASON FOR CONSULTATION: I was asked to evaluate concerning COVID-19 infection. HISTORY OF PRESENT ILLNESS: The patient was a 70-year-old with diabetes, end-stage renal disease, on chronic hemodialysis via right chest tunneled dialysis catheter. In October, she fractured her right leg tib-fib, which she was treated with immobilization. Subsequently developed ulceration to her right heel and has been immobilized and required residential care. She has chronic hypotension. She was seen in the [facility] yesterday where she was found to be hypotensive. Brought into the Emergency Room where COVID testing proved positive. She has had ongoing hypotension that she takes midodrine for. She has been followed by the Nephrology Service who states this is her baseline. She has had no chest pain, palpitations, presyncopal or syncopal episodes. Still has discomfort in her right leg. She also has pressure wounds to several toes on the left foot. She had been on doxycycline within the last month. Also has been on azathioprine in the past. I am unclear as to the etiology of the reason for azathioprine. REVIEW OF SYSTEMS: Denies any cough or sputum production. No change in mental status. She has denied any loss of taste or smell. No nausea, vomiting or diarrhea. A 14-point review of system was negative other than what has been described above. PAST MEDICAL HISTORY: Gastric bypass, diabetes, end-stage renal disease, hypertension, SVT, ORIF of her elbow, Raynaud's, gastroesophageal reflux, left lower extremity DVT, bone fractures. Chronic hypotension treated with midodrine, CABG. FAMILY HISTORY: No reported tuberculosis. No stroke. SOCIAL HISTORY: Nonsmoker, no significant alcohol intake. ALLERGIES: MORPHINE, BETA BLOCKERS, LATEX, NIFEDIPINE, PENICILLIN, SULFA, IODINE. [address] [address] CONSULTATION Name: STEFFANY BHARDWAJ Room #: 236-P [facility] IN M.R.#: [id number] Admission: 02/25/20 Attend Phys: Dave Potter MD Discharge: Date of : 50 Report #: [id number] MEDICATIONS: As noted on her APR, which were reviewed, now on ceftriaxone. It appears that the azathioprine may be in treatment for her Raynaud's, although she was not able to confirm this. PHYSICAL EXAMINATION: VITAL SIGNS: Afebrile, blood pressure systolic in the 70s, heart rate in the 50s. GENERAL: She was alert and cooperative and pleasant, in no acute distress. SKIN: With a pressure wound to the right heel, large eschar. No surrounding cellulitis. Ulcerations to the lateral right lower leg with clean base. Pressure wound to the second and fourth toes on the left. She had decreased pulses in both feet. No palpable adenopathy. EYES: Without scleral icterus. MOUTH: Without mucositis. NECK: Supple. LUNGS: Clear. HEART: Regular, without murmur. Left IJ catheter site without erythema or drainage. Right chest tunneled dialysis catheter site without erythema or tenderness. ABDOMEN: Soft and nontender with no hepatosplenomegaly or mass. EXTREMITIES: Without significant edema. BACK: Soft, nontender. Mood without anxiety or depression. NEUROLOGIC: Cranial nerves intact. Strength in the upper and lower extremities was symmetric and within normal limits. LABORATORY DATA: Reviewed. MICROBIOLOGY: Reviewed. IMAGING: Chest x-ray reviewed. IMPRESSION: 1. COVID-19 infection without evidence of pneumonia at this stage. No oxygen requirements at this point with oxygen saturation in the high 90s. 2. Hypotension, chronic. 3. Raynaud's significant disease, on immunosuppression. 4. Neutropenia, suspect viral induced. 5. Diabetes. 6. End-stage renal disease. RECOMMENDATIONS: We will continue supportive measures for her hypotension as outlined by nephrology service. We will add multivitamin and ivermectin. Hold on continuing corticosteroids at this point. Monitor CBC. Control diabetes. [address] [address] CONSULTATION Name: STEFFANY BHARDWAJ Room #: 236-P [facility] IN M.R.#: [id number] Admission: 02/25/20 Attend Phys: Dave Potter MD Discharge: Date of : 50 Report #: [id number] Keep extremities as warm as possible. Dialysis program as outlined by Nephrology. <ELECTRONICALLY SIGNED> By: Evelio Torres MD 02/27/20 1614 [id number] [id number] Evelio Torres MD /nt
[2020-02-28 03:34] LABS: BASOPHILS 0.7 % (0.0-2.0); HEMATOCRIT 31.4 % (37.0-47.0); HEMOGLOBIN 10.1 gm/dL (12.0-15.0); LYMPHOCYTES 15.9 % (24.0-44.0); MCHC 32.2 g/dL (28.0-37.0); MCV 111.9 fL (80.0-100.0); MONOCYTES 7.9 % (1.0-8.0); PLATELET COUNT 88 thou/uL (150-400); POLYS 75.5 % (36.0-66.0); RDW 19.1 % (10.5-14.5); WBC 2.6 thou/uL (4.0-11.0)
[2020-02-28 03:53] LABS: ALBUMIN 2.5 g/dL (3.4-5.0); CALCIUM 8.2 mg/dL (8.5-10.1); CREATININE 4.6 mg/dL (0.6-1.0); POTASSIUM 3.4 mmol/L (3.5-5.1); TOTAL BILIRUBIN 0.6 mg/dL (0.2-1.0); TOTAL PROTEIN 5.3 g/dL (6.4-8.2)
[2020-02-28 04:05] VITALS: BP 85/45
[2020-02-28 14:07] VITALS: BP 76/45
--- NOTE | 2020-02-28 14:42 | NUR ---
ASSUMED CARE AT 0700, ASSESSMENT AND VITAL SIGNS COMPLETED PER ICU PROTOCOL. DR. NOBLE ROUNDED THIS AM, PLAN OF CARE DISCUSSED. 14:00: PT TRANSFERRED TO 3W BY RN AND TECH, REPORT GIVEN TO KANDY GARCIA. PT SETTLED COMFORTABLY, NO ISSUES NOTED.
[2020-02-28 15:13] VITALS: BP 85/48
--- NOTE | 2020-02-28 16:14 | NUR ---
PT TRANSFERED FROM ICU ABOUT 1500PM, PT IS A&OX3, PT 'S BP STILL IS LOW, BUT PT DENIES DIZZY AND SOB , PT'S RLE WOUND CARE HAS DONE, PT DENIES PAIN AND SOB AT THIS TIME.
[2020-02-28 19:55] VITALS: BP 95/53
--- NOTE | 2020-02-29 01:36 | NUR ---
PT LYING IN BED. ANURIA-DIALYSIS PT. DENIES PAIN. RESTING COMFORTABLY. NO NEEDS VOICED. CALL LIGHT WITHIN REACH. FREQUENT OBSERVATION.
[2020-02-29 04:12] VITALS: BP 79/49
[2020-02-29 07:30] VITALS: BP 93/55
[2020-02-29 10:59] VITALS: BP 76/45
[2020-02-29 15:37] VITALS: BP 96/48
--- NOTE | 2020-02-29 15:59 | NUR ---
TY reviewed chart and spoke with nursing and attending physician. Pt was transferred to from ICU. Remains in Enhanced Isolation due to COVID-19. Pt is afebrile and not requiring O2. Pt is on IV abx. Pt having dialysis today. TY received call from pt's brother, Ochoa. Lengthy discussion regarding discharge disposition. Ochoa states that pt will not return to [facility] when discharged. TY explained barriers to finding alternate placement with COVID-19 and being a dialysis pt. SW discussed the two SNFs that have onsite dialysis: [facility] and [facility]. [facility] is no longer accepting COVID positive pts. SW explained that other facilities may not accepting new pts into their facilities that do outpatient dialysis. SW further discussed LTAC facilities that provide onsite dialysis, but pt would need to meet medical criteria to qualify for admission to LTAC. Pt's brother states that he had looked at LTAC facilities a while back and would be interested in [facility]. TY explained that an evaluation would need to be completed by the LTAC, and that an LTAC is not permanent placement. Pt's brother verbalized understanding. Pt's brother asked for a repeat COVID test, as he feels that the test may have been a false positive. Per Ochoa, pt had the first dose of the COVID vaccine a few days prior to admission. TY explained that the physician will need to order the test. Ochoa requests to speak with GI. TY provided Ochoa's contact info to GI [employer]. TY discussed with attending physician. Repeat COVID test will be ordered. TY also updated pt's nurse. TY is following to assist as needed with discharge planning.
[2020-02-29 20:29] VITALS: BP 117/49
[2020-03-01] VITALS (7 sets, daily range): BP systolic 64–184; BP diastolic 39–161
--- NOTE | 2020-03-01 04:07 | NUR ---
ASSUMED CARE OF PT AT 1900. PT IS A/O X3. PT IS ON ROOM AIR AND IS SR/ST ON THE MONITOR. DIALYSIS COMPLETED EARLIER IN THE DAY AND PT REPORTS BEING TIRED AND FEELING GROGGY. ALSO C/O NAUSEA AND VOMITTING. PRN NAUSEA MEDICATION PROVIDED DIRECTED. ZGUARD APPLIED TO BOTTOM. FALL PRECAUTIONS IMPLEMENTED AND CALL LIGHT IS WITHIN REACH. PT CONTINUES TO REFUSE BLOOD SUGARS TO BE TAKEN. TRIPLE LUMEN IJ AND TESIO REMAIN IN PLACE AND WORKING APPROPRIATELY. WILL CONTINUE TO MONITOR.
[2020-03-01 12:07] LABS: HEPATITIS B SURFACE AG Negative (Negative)
--- NOTE | 2020-03-01 14:44 | NUR ---
TY reviewed chart and spoke with nursing and attending physician. Pt remains in Enhanced Isolation due to COVID-19. Pt was febrile overnight. Pt is on 2L of O2. Pt is on IV abx. Pt to have echo today. Repeat COVID test ordered today. Results are pending at this time. TY spoke with pt's brother, Ochoa, via phone. Ochoa states he did speak with attending physician regarding pt's current condition. Per Ochoa, he feels that pt is not ready for discharge. TY explained that COVID test results are pending and placement options will be determined by test results. SW discussed going to a facility with onsite dialysis or returning home. Pt's brother states he would like for [facility] to evaluate pt to see if she meets LTAC criteria. Ochoa also interested in [facility] TY explained the differences in levels of care ath LTAC, inpt acute rehab and SNF. Pt's brother verbalized understanding and continues to state that he does not want pt to return to [place]. TY faxed referral to [facility] and notified liaison. TY placed call to pt's room. No answer. TY is following to assist as needed with discharge planning.
--- NOTE | 2020-03-01 21:40 | NUR ---
when assessing pt found inside of her baby wipes container, which is in reach.
--- NOTE | 2020-03-02 03:09 | NUR ---
ASSUMED CARE OF PT FROM PREVIOUS RN. ASSESSMENT UNCHANGES SO FAR. PT SLEEPING QUIETLY PRESENTLY. TURNED TO R SIDE. HEEL PROTECTORS ON. BED ALARM ON. WILL CONTINUE TO MONITOR PT FOR CHANGES.
[2020-03-02 04:37] VITALS: BP 67/47
--- NOTE | 2020-03-02 06:03 | NUR ---
Pt progressing towards d/c goals. Bp low . See vs. Pt asymptomatic. Midodrine given. Pt repositioned and is resting without s/s distress.
[2020-03-02 12:01] VITALS: BP 80/44
--- NOTE | 2020-03-02 13:25 | NUR ---
Per NM, pt is to be NPO after midnight including no pain meds or anti-emetics.
[2020-03-02 15:13] VITALS: BP 83/46
--- NOTE | 2020-03-02 15:24 | NUR ---
TY reviewed chart and spoke with nursing and attending physician. Pt remains in Enhanced Isolation due to COVID-19. Pt is afebrile and not requiring O2. Pt is on IV abx. Pt to have dialysis today. Pt will have a PIPIDA scan tomorrow. Pt's repeat COVID test yesterday was positive. TY spoke with pt's brother, Ochoa, via phone earlier today to discuss discharge options. Pt's brother is refusing to allow pt to return to [place]. TY explained that there are no other SNFs with onsite dialysis that are accepting COVID positive pts. [facility] has referral and is reviewing. Pt's brother requests referral to be sent to [facility] and [facility] as well for review. Ochoa would like to have options for discharge disposition. TY faxed referral to [facility] and [facility]. Notified liaisons of referral. TY notified by [facility] liaison that they are able to accept pt on 03/07. [facility] requires pt to be admitted at least 10 days post first positive COVID test. Awaiting input from [facility] and [facility]. [facility] liaison did speak with pt's brother regarding acceptance. TY updated pt's nurse and attending physician. TY is following to assist as needed with discharge planning.
[2020-03-02 15:31] LABS: HEMOGLOBIN 9.9 gm/dL (12.0-15.0)
[2020-03-02 15:33] LABS: HEMATOCRIT 30.3 % (37.0-47.0); MCH 36.3 pg (26.0-34.0); MCHC 32.6 g/dL (28.0-37.0); MCV 111.4 fL (80.0-100.0); RBC 2.72 mil/uL (4.20-5.00); RDW 19.5 % (10.5-14.5); WBC 2.7 thou/uL (4.0-11.0)
[2020-03-02 15:48] LABS: ALBUMIN 2.6 g/dL (3.4-5.0); CALCIUM 8.1 mg/dL (8.5-10.1); CREATININE 2.5 mg/dL (0.6-1.0); POTASSIUM 3.7 mmol/L (3.5-5.1); TOTAL BILIRUBIN 0.8 mg/dL (0.2-1.0); TOTAL PROTEIN 4.9 g/dL (6.4-8.2)
[2020-03-02 16:07] LABS: ABSOLUTE NEUTROPHILS 2.3 thou/uL (1.4-8.2); ANISOCYTOSIS 2+; MACROCYTES 2+; PLATELET COUNT 46 thou/uL (150-400); PLATELET ESTIMATE DECREASED
[2020-03-02 16:08] LABS: LARGE PLATELETS FEW
[2020-03-02 19:30] VITALS: BP 129/93
--- NOTE | 2020-03-03 02:10 | NUR ---
ASSESSED AT START OF SHIFT. PT A&OX4. DENIES PAIN. STATED WAS NAUSEATED DURING THE DAY. EVENING MEDS GIVEN. PT NPO AT MIDNIGHT FOR PIPIDA TEST TOMORROW. PT REFUSED BSG CHECK EDUCATION PROVIDED. ISLOATION MAINTAINED. PT ON RA NO FURTHER SIGNS OF DISCOMFORT WILL CONT TO MONITOR.
[2020-03-03 04:18] VITALS: BP 78/51
[2020-03-03 05:57] VITALS: BP 84/45
[2020-03-03 08:03] VITALS: BP 87/58
--- NOTE | 2020-03-03 14:47 | NUR ---
TY reviewed chart and spoke with nursing and attending physician. Pt remains in Enhanced Isolation. Discharge order entered. TY discussed with [facility] liaison, Anne, and they are able to accept pt. Admission date 03/07 due to needing at least 10 days post first COVID positive test date. TY discussed with [facility] liaison, who states they may be able to accept pending bed availability. TY faxed additional Clinical updates to [facility] to send to their corporate office. [facility] liaison requested additional info. Info faxed for review. [facility] is unable to accept pt. TY spoke with pt's brother, Ochoa, via phone to provide update and discuss LTAC options. Pt's brother chose [facility]. Anticipate discharge to [facility] on Saturday, 03/07. Surgery consulted today following PIPIDA scan. TY updated pt's nurse and attending physician. TY is following to assist as needed with discharge planning.
--- NOTE | 2020-03-03 18:19 | NUR ---
ASSUMED PATIENT CARE AT 0700. C/O N/V. DENIES PAIN. WILL KEEP MONITOR.
[2020-03-03 19:47] VITALS: BP 98/66
--- NOTE | 2020-03-03 22:39 | NUR ---
PT ALERT AND ORIENTED X4 . VSS T 99.4 SAT 95% ON RA. LUNGS SOUND DIMINISHED. PT REFUSES OCCLUSIVE CENTRAL LINE DRESSING TO LEFT NECK. SHE WOULD ONLY ALLOW NS TO REINFORCE CURRENT DRESSING. WOUND CARE DONE BY DAY SHIFT NURSE. DRESSINGS DRY AND INTACT FEET HAVE HEEL PROTECTORS ON. REPOSITIONED PT. ERROL CARE DONE. NO C/O PAIN. NO S/S DISTRESS. HR TACHY 114 PRESENTLY. EMESIS X1 SO FAR TONIGHT. SMALL AMTS CLEAR LIGHT DRAINAGE NOTED. BED DOWN CALL LIGHT IN REACH. BED ALARM ON. SIDE RAILS UP X2. WILL CONTINUE TO MONITOR PT FOR CHANGES.
[2020-03-04 00:03] VITALS: BP 93/61
[2020-03-04 04:00] VITALS: BP 94/51
--- NOTE | 2020-03-04 05:36 | NUR ---
ASSESSMENT UNCHANGED EXCEPT FEW CRACKLES NOTED AT BASES. UNLABORED ON RA. PT RESPOSITIONED ZGARD APPLIED TO BOTTOM.
[2020-03-04 08:00] VITALS: BP 95/28
[2020-03-04 12:00] VITALS: BP 138/43
--- NOTE | 2020-03-04 14:52 | NUR ---
354 NOTE PER X RAY DEVELOPING MACHINE OPERATOR: TY spoke with nursing and attending physician. Pt remains in Enhanced Isolation. Surgery consulted and recommended outpatient surgery at a later time. Discharge to [facility] is anticipated for Saturday. TY updated [facility] liaison, Anne. TY discussed with ID physician. TY spoke with pt's brother, Ochoa via phone to provide update and discuss discharge plan. Lengthy discussion with Ochoa regarding pt's discharge. Ochoa stated that someone had told the pt that she was going to [facility] when a bed became available. SW reiterated to Ochoa that the plan is [facility] on Saturday and unsure where that info was obtained. TY discussed with pt's nurse to pass on in report that plan is for [facility] on Saturday. Ochoa is agreeable with plan and states he has left a voice message for attending physician. SW to fax updates to [facility] on Saturday and is following to assist as needed with discharge planning. JENNIFER Michelle
[2020-03-04 17:07] VITALS: BP 94/61
--- NOTE | 2020-03-04 18:27 | NUR ---
ASSUMED PATIENT CAREAT 0700. A/O X3 CONFUSED. HAD HD IN AM. IRRITABLE. C/O NAUSEA, NO VOMIT. TAKE 7 HOURS TRY TO SWALLOW PILLS BUT STILL ON TABLE. REFUSED HELP. NOT TOWARDS POC GOALS.
[2020-03-04 19:51] VITALS: BP 86/48
[2020-03-05 03:55] VITALS: BP 97/58
--- NOTE | 2020-03-05 04:43 | NUR ---
PROGRESS PT A/O X3 IRRITABLE AND UNCOOPERATIVE WITH CARES KEEPS KICKING OF HEEL PROTECTORS AND REFUSING TO LET ME APPLY THE STRAPS. BP RUNS LOW 70'S TO 80'S TROLLEY COLLECTOR AWARE OK LONG SHE REMAINS ASYMPTOMATIC. HAS SURGERY CONSULT FOR POSSIBLE CHOLECYSTECTOMY POSSIBLY OUTPATIENT. HAD DIALYSIS THIS AM HAS A RIGHT CHEST TESSIO CATHETER. ON A RENAL DIET WITH CLEAR ENSURE WITH ALL MEALS PT HAS POOR APPETITE AND POOR INTAKE.HAS A WOUND TO RIGHT HEEL BRUISED AND BOGGY , A SMALL OPEN AREA TO HER RIGHT SIDE OF PANNUS WITH INTERDRY IN PLACE AND HEALED RIGHT RUIZ WOUND SHE LIKES TO KEEP DRESSED. TELE INTACT READING SR/ST WITH RATES IN THE LOW 100'S.
[2020-03-05 08:01] VITALS: BP 76/48
[2020-03-05 11:22] LABS: HEMATOCRIT 30.3 % (37.0-47.0); HEMOGLOBIN 9.7 gm/dL (12.0-15.0); MCH 35.5 pg (26.0-34.0); MCHC 31.9 g/dL (28.0-37.0); MCV 111.5 fL (80.0-100.0); PLATELET COUNT 34 thou/uL (150-400); RBC 2.72 mil/uL (4.20-5.00)
[2020-03-05 11:26] VITALS: BP 68/35
[2020-03-05 11:33] LABS: ALBUMIN 2.3 g/dL (3.4-5.0); CREATININE 3.4 mg/dL (0.6-1.0); MAGNESIUM 1.6 mg/dL (1.8-2.4); POTASSIUM 4.2 mmol/L (3.5-5.1); TOTAL PROTEIN 4.8 g/dL (6.4-8.2)
[2020-03-05 11:44] VITALS: BP 120/102
[2020-03-05 11:50] LABS: CALCIUM 8.1 mg/dL (8.5-10.1)
[2020-03-05 12:37] LABS: ABSOLUTE NEUTROPHILS 1.5 thou/uL (1.4-8.2); ATYPICAL LYMPHS 1 %
[2020-03-05 12:40] LABS: ANISOCYTOSIS 2+; PLATELET ESTIMATE DECREASED
[2020-03-05 12:41] LABS: OVALOCYTES 1+
[2020-03-05 14:43] LABS: APTT 39.4 Seconds (24.5-32.8); D-DIMER 0.72 ug/mLFEU (0.19-0.50); INR 1.3; PROTIME 13.4 Seconds (9.3-11.4)
[2020-03-05 14:45] LABS: FIBRINOGEN 88.6 mg/dL (210-360)
[2020-03-05 15:59] VITALS: BP 151/133
--- NOTE | 2020-03-05 18:24 | NUR ---
ASSUMED PATIENT CARE AT 0700. A/O X4 BUT CONFUSED. LETHARGIC SOMETIMES. OFFERED 2L/NC 02 DUE TO O2 SAT 83- 88%. PATIENT RR HIGH IN AM 38/M. NAUSEA NO VOMIT. CENTRAL LINE DRESSING CHANGED. NOT TOWADS POC GOALS.
[2020-03-05 19:31] VITALS: BP 79/52
--- NOTE | 2020-03-06 02:52 | NUR ---
PT LYING IN BED. DENIES PAIN. RESTING COMFORTABLY. NO NEEDS VOICED. CALL LIGHT WITHIN REACH. FREQUENT OBSERVATION.
[2020-03-06 04:05] VITALS: BP 138/70
[2020-03-06 07:26] LABS: HEMOGLOBIN 9.3 gm/dL (12.0-15.0); WBC 2.5 thou/uL (4.0-11.0)
[2020-03-06 07:27] LABS: HEMATOCRIT 29.2 % (37.0-47.0); MCH 35.4 pg (26.0-34.0); MCHC 31.8 g/dL (28.0-37.0); MCV 111.2 fL (80.0-100.0); RBC 2.63 mil/uL (4.20-5.00); RDW 18.9 % (10.5-14.5)
[2020-03-06 07:39] LABS: ALBUMIN 2.1 g/dL (3.4-5.0); CALCIUM 8.3 mg/dL (8.5-10.1); MAGNESIUM 1.6 mg/dL (1.8-2.4); POTASSIUM 4.1 mmol/L (3.5-5.1); TOTAL PROTEIN 4.6 g/dL (6.4-8.2)
[2020-03-06 07:42] LABS: CREATININE 4.4 mg/dL (0.6-1.0)
[2020-03-06 07:57] VITALS: BP 150/124
[2020-03-06 09:00] VITALS: BP 91/75
[2020-03-06 10:35] LABS: APTT 37.3 Seconds (24.5-32.8); INR 1.2; PROTIME 12.7 Seconds (9.3-11.4)
[2020-03-06 11:06] VITALS: BP 132/111
[2020-03-06 12:24] LABS: ABSOLUTE NEUTROPHILS 2.1 thou/uL (1.4-8.2)
[2020-03-06 12:31] LABS: ANISOCYTOSIS 2+; HYPOCHROMASIA 2+; MACROCYTES 3+
[2020-03-06 12:45] LABS: PLATELET COUNT 34 thou/uL (150-400)
[2020-03-06 13:58] LABS: BE(vivo) 2.7 mmol/L (-2 to +3); HCO3 26.3 mmol/L (22.0-26.0); PCO2 36.7 mmHg (35.0-45.0); PO2 43.4 mmHg (80.0-100.0); pH 7.473 (7.360-7.450); sO2 82.7 % (92.0-98.0)
[2020-03-06 16:02] VITALS: BP 147/125
[2020-03-06 19:55] VITALS: BP 103/77
[2020-03-07] VITALS (7 sets, daily range): BP systolic 70–141; BP diastolic 42–108
--- NOTE | 2020-03-07 03:05 | NUR ---
PT LYING IN BED. TURNING PER PT REQUEST. DENIES PAIN. RESTING COMFORTABLY. NO NEEDS VOICED. CALL LIGHT WITHIN REACH. FREQUENT OBSERVATION.
[2020-03-07 06:14] LABS: APTT 37.8 Seconds (24.5-32.8); FIBRINOGEN 103.4 mg/dL (210-360); INR 1.3; PROTIME 13.4 Seconds (9.3-11.4)
[2020-03-07 06:18] LABS: HEMATOCRIT 28.1 % (37.0-47.0); MCH 35.9 pg (26.0-34.0)
[2020-03-07 06:21] LABS: HEMOGLOBIN 9.1 gm/dL (12.0-15.0); MCHC 32.5 g/dL (28.0-37.0); MCV 110.2 fL (80.0-100.0); RBC 2.55 mil/uL (4.20-5.00); RDW 18.3 % (10.5-14.5); WBC 3.5 thou/uL (4.0-11.0)
[2020-03-07 06:40] LABS: CALCIUM 8.3 mg/dL (8.5-10.1); MAGNESIUM 1.6 mg/dL (1.8-2.4); POTASSIUM 4.3 mmol/L (3.5-5.1); TOTAL BILIRUBIN 0.9 mg/dL (0.2-1.0); TOTAL PROTEIN 4.5 g/dL (6.4-8.2)
[2020-03-07 06:43] LABS: CREATININE 5.5 mg/dL (0.6-1.0)
--- NOTE | 2020-03-07 13:20 | NUR ---
TY reviewed chart and spoke with nursing and attending physician. Pt remains in Enhanced Isolation. Pt is on IV abx and 2L of O2. Afebrile. Pt having dialysis today. Pt was scheduled for surgery today. Surgery cancelled due to low platelets. TY received call from pt's brother, Ochoa, regarding discharge plan to LTAC. Ochoa states that renal spoke with him about pt going to [facility] where renal group can follow. Ochoa requests SW to contact [facility] to see if they would be able to accept pt. TY faxed clinical updates to [facility] and notified liaison of updates. TY updated [facility] liaison as well. TY is following to assist as needed with discharge planning.
--- NOTE | 2020-03-07 16:15 | NUR ---
ASSUMED PATIENT CARE AT 0700. A/0 X4 BUT CONFUSED SOMETIMES. PATIENT HAD DAILYSIS IN AM. FINISHED HD 15MIN EARLY DUE TO BP LOW. POOR APPETITE. NOT ABLE TO KEEP O2 TUBING ON. LOWER GRADE TEMP. UPDATE WITH DPOA. NOT TOWARDS POC GOALS.
--- NOTE | 2020-03-07 19:51 | NUR ---
ASSUMED CARE OF PT AT APPROX 1700 FROM 3W. PT SETTLED IN ROOM. MEDS GIVEN PER MAR. PT C/O N/V, TREATED WITH ZOFRAN WITH PT REPORTING SOME RELIEF. SURGERY WAS CANCELLED TODAY D/T LOW PLATELET COUNT. PT APPETITE CONTINUES TO BE POOR. WILL CONTINUE TO MONITOR AND FOLLOW POC.
--- NOTE | 2020-03-08 04:23 | NUR ---
Assumed pt care at 1900. Pt is alert and oriented but forgetful. Pt is stable. No acute events noted. Denies pain. Fall precaution in place. Assessment completed and documented. Scheduled meds administered to pt. No acute events noted overnight. Continue to monitor. No further needs at this time.
[2020-03-08 04:45] VITALS: BP 137/111
[2020-03-08 08:20] VITALS: BP 100/43
[2020-03-08 11:06] LABS: HEMATOCRIT 30.6 % (37.0-47.0); HEMOGLOBIN 9.6 gm/dL (12.0-15.0); MCH 35.6 pg (26.0-34.0); MCHC 31.4 g/dL (28.0-37.0); MCV 113.2 fL (80.0-100.0); RBC 2.7 mil/uL (4.20-5.00); RDW 19.1 % (10.5-14.5)
[2020-03-08 11:30] VITALS: BP 116/66
[2020-03-08 15:40] VITALS: BP 99/71
--- NOTE | 2020-03-08 16:15 | NUR ---
TY reviewed chart. Pt was transferred to from . Enhanced Isolation precautions have been discontinued. Per surgery, surgical intervention on hold at this time. TY contacted Gladys at [facility] to provide update. Per Gladys, [facility] is able to accept pt. TY spoke with pt's brother, Ochoa, via phone to provide update and notify of [facility]'s acceptance. Lengthy discussion with Ochoa about discharge planning. Pt's brother is requesting to speak with physician regarding plan of care. 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 Pt's brother is agreeable with plan for pt to discharge to [facility] when medically stable. TY is following to assist as needed with discharge planning.
--- NOTE | 2020-03-08 16:45 | NUR ---
FAXED CLINICAL UPDATE TO CHARLEEN [facility]OFF OF OP RECEIVED CONFIRMATION AND LEFT MSG WITH IRINA IN ADM.
[2020-03-08 20:45] VITALS: BP 83/57
[2020-03-09] VITALS: BP 137/61
--- NOTE | 2020-03-09 04:23 | NUR ---
CARE ASSUMED 1900. PT ALERT TO SELF. PT LOOK LETHERGIC WITH PERIODIC JERKY BODY MOVEMENTS. PT REFUSED TO TAKE HER EVENING MEDICATIONS. THIS MORNING, PT BP 65/39, NO CHANGES IN MENTATION COMPARED TO PREVOUSLY ASSESSED. PT IS A CHRONICALLY HYPOTENSIVE. [employer] ASSOCIATE NOTIFIED. WAS DEFERRED CALL TO NEPHRO PREVIOUSLY NEPHROLOGY WAS AGAINST ANY PRESSURE SUPPORT TO THIS PATIENT. NEPHROLOGY PAGED AT [phone]. AWAITING CALL BACK. WILL CONTINUE TO MONITOR.
[2020-03-09 04:45] VITALS: BP 66/39
[2020-03-09 05:18] LABS: HEMATOCRIT 30.6 % (37.0-47.0); HEMOGLOBIN 9.5 gm/dL (12.0-15.0); MCH 35.5 pg (26.0-34.0); MCV 114.5 fL (80.0-100.0); RBC 2.67 mil/uL (4.20-5.00); RDW 18.6 % (10.5-14.5); WBC 5.4 thou/uL (4.0-11.0)
[2020-03-09 05:32] LABS: ALBUMIN 2.1 g/dL (3.4-5.0); CALCIUM 9.1 mg/dL (8.5-10.1); CREATININE 4.8 mg/dL (0.6-1.0); POTASSIUM 4.5 mmol/L (3.5-5.1); TOTAL BILIRUBIN 1.6 mg/dL (0.2-1.0)
[2020-03-09 08:01] VITALS: BP 155/65
[2020-03-09 15:08] VITALS: BP 111/96
--- NOTE | 2020-03-09 16:17 | NUR ---
SW reviewed chart and spoke with attending physician. Pt is not progressing towards goals for discharge. ID and attending physician have updated pt's brother, Ochoa. SW updated Gladys at [facility]. SW spoke with pt's brother via phone. Supportive listening provided. SW is following to assist as needed with discharge planning.
--- NOTE | 2020-03-09 18:46 | NUR ---
PT IS ALERT TO SELF. PT HAD BP OF 65/39 PRIOR TO SHIFT. PT HAS BEEN NON VERBAL AND THRASHING THROUGHOUT THE DAY. PT HAD LOW BLOOD SUGAR AT 1100 AND AT 1600. PT TREATED WITH DEXTROSE. PT DID NOT RECEIVE HEMODIALYSIS BECAUSE UNSTABLE CONSISTENT LOW BLOOD PRESSURE. PT NOT GIVEN ORAL MEDICATIONS PT WAS UNABLE TO SWALLOW. DR FISH CONSULTED. CASE MGMT CONSULTED. FALL PRECAUTIONS IN PLACE. POC TO CONTINUE ABX, MONITOR BLOOD PRESSURE, BLOOD SUGAR, AND MANAGE PAIN.
[2020-03-09 19:35] VITALS: BP 87/49
[2020-03-09 23:39] VITALS: BP 127/106
--- NOTE | 2020-03-09 23:56 | NUR ---
PT BSG 23 WHEN RECHECKED 25. RANDEE MCCRARY NOTIFIED WILL FF PROTOCOL.
[2020-03-10 05:51] VITALS: BP 72/50
--- NOTE | 2020-03-10 06:50 | NUR ---
PT TIME OF THIS AM 1807
--- NOTE | 2020-03-10 09:55 | NUR ---
PT TOD 0650. FAMILY TO TAKE HOME BELONGINGS. FAMILY AT BEDSIDE. NO HOME GIVEN. MTN NOTIFIED, PT NOT A CANIDATATE.
--- NOTE | 2020-03-10 10:19 | HC ---
[facility] [place] [address] CONSULTATION Name: STEFFANY BHARDWAJ Room #: 218-P [facility] IN M.R.#: [id number] Admission: 02/25/20 Attend Phys: Dave Potter MD Discharge: 03/10/20 Date of : 50 Report #: [id number] THIS REPORT FOR: cc: Ge Lewis MD, Michael D. MD Althoff,De Newell MD ~ DATE OF SERVICE: 02/26/2020 HISTORY OF PRESENT ILLNESS: This is a 70-year-old female patient who I have been asked to see for ulcerations of the lower extremity and some skin tears in the intraabdominal folds. She is currently in ICU. She normally lives in a fdc facility. PAST MEDICAL HISTORY: Positive for hypertension, prior gastric bypass surgery, end-stage renal disease, requiring dialysis; Raynaud's, GERD, previous left lower extremity DVT, history of SVT and hypertension. SOCIAL HISTORY: Negative for alcohol or tobacco use. FAMILY HISTORY: Noncontributory. MEDICATIONS: Include Eliquis, Nexium, azathioprine, midodrine, Sensipar, Nephrocaps, oxycodone, doxycycline, aspirin. ALLERGIES: MORPHINE, BETA-BLOCKERS, LATEX, NIFEDIPINE, PENICILLIN, BETADINE, SULFA. REVIEW OF SYSTEMS: CONSTITUTIONAL: The patient denies fever or chills. ENT: The patient denies earache, nasal drainage, sore throat. CARDIOVASCULAR: The patient denies chest pain, palpitations or diaphoresis. PULMONARY: The patient complains of mild shortness of breath. Denies cough or sputum production. GASTROINTESTINAL: The patient denies nausea, vomiting, diarrhea or abdominal pain. ORTHOPEDIC: The patient is aware of ulcerations on the lower extremities. Other systems in a 14-point review of systems are negative. PHYSICAL EXAMINATION: VITAL SIGNS: At this time include temperature 36.5, pulse 68, respiratory rate of 17, blood pressure 90/52. GENERAL: This is an older female patient who appears to be in minimal distress. HEENT: Head normocephalic. NECK: Supple. LUNGS: Diminished. [facility] [address] [place] [address] CONSULTATION Name: STEFFANY BHARDWAJ Room #: 218-P [facility] IN M.R.#: [id number] Admission: 02/25/20 Attend Phys: Dave Potter MD Discharge: 03/10/20 Date of : 50 Report #: [id number] HEART: Regular rhythm. ABDOMEN: Soft, obese, nontender. EXTREMITIES: Lower extremities demonstrate ulcers of the 2nd, 3rd and 4th toes of the left foot. They appear to be relatively superficial. She also has a small ulceration of the right fourth toe. She has an unstageable pressure ulcer to the left posterior heel and a vascular type ulcer to the right pretibial region. NEUROLOGIC: The patient is moving symmetrically. LABORATORY DATA: Sodium 140, potassium 3.0, chloride 103, CO2 19, BUN 7, creatinine 5.0, glucose 66, calcium is 8.4, albumin is 2.6. White blood cell count 2.0 with a hemoglobin 12.1. She is COVID positive. CLINICAL IMPRESSION: 1. Ulcerations of the left second, third and fourth toes and right fourth toe as well as unstageable pressure ulcer, left posterior heel, as well as vascular type ulcer to the right pretibial region and small skin tears to the right intraabdominal folds. 2. COVID-19 positive. 3. History of gastric bypass. 4. End-stage renal disease. 5. Pancytopenia. 6. Moderate protein-calorie malnutrition with albumin of 2.5. 7. Peripheral arterial disease, status post PCI in 12/2019, at which time she underwent aortogram, bilateral lower extremity runoff and underwent right posterior tibial artery atherectomy and angioplasty and a secondary thrombectomy of the right posterior tibial artery. RECOMMENDATIONS: At this point in time, we recommend skin prep and dry gauze to the toes of both feet and skin prep and dry gauze to the left posterior heel. She will need heel protector boots on at all times. We will recommend Xeroform, ABD, Kerlix daily to the right pretibial region and InterDry AG beneath her abdominal skin folds. Hospitalist to manage her other underlying medical conditions. She will need ongoing nutritional support. I appreciate being asked to see her in consultation. <ELECTRONICALLY SIGNED> By: De Loja MD 03/10/20 [id number] De Loja MD /nt
== END 2020-03-10 09:57 | DRG 871 ==
LOC: ER 12:04 → EROBS 17:53 → ICU 17:53 → 3W 02-28 14:05 → 2N 03-07 16:55
PROVIDERS: Emergency Medicine; Hospitalist; Internal Medicine; Pediatrics; Specialist; ADMIT Hospitalist; ATTEND Hospitalist
DX: A41.9 Sepsis, unspecified organism (principal); N18.6 End stage renal disease; U07.1 COVID-19; E43 Unspecified severe protein-calorie malnutrition; J96.01 Acute respiratory failure with hypoxia; J12.82 Pneumonia due to coronavirus disease 2019; G92 Toxic encephalopathy; J69.0 Pneumonitis due to inhalation of food and vomit; D61.818 Other pancytopenia; S36.9 Injury of unspecified intra-abdominal organ; K80.40 Calculus of bile duct with cholecystitis, unspecified, without obstruction; N17.9 Acute kidney failure, unspecified; I12.0 Hypertensive chronic kidney disease with stage 5 chronic kidney disease or end stage renal disease; R57.1 Hypovolemic shock; I95.89 Other hypotension; K21.9 Gastro-esophageal reflux disease without esophagitis; E11.22 Type 2 diabetes mellitus with diabetic chronic kidney disease; L97.529 Non-pressure chronic ulcer of other part of left foot with unspecified severity; E11.51 Type 2 diabetes mellitus with diabetic peripheral angiopathy without gangrene; E11.649 Type 2 diabetes mellitus with hypoglycemia without coma; E87.6 Hypokalemia; L97.519 Non-pressure chronic ulcer of other part of right foot with unspecified severity; I73.00 Raynaud's syndrome without gangrene; L89.620 Pressure ulcer of left heel, unstageable; E11.43 Type 2 diabetes mellitus with diabetic autonomic (poly)neuropathy; D53.9 Nutritional anemia, unspecified; K31.84 Gastroparesis; K82.8 Other specified diseases of gallbladder; Z66 Do not resuscitate; Z86.718 Personal history of other venous thrombosis and embolism; Z88.2 Allergy status to sulfonamides; Z88.8 Allergy status to other drugs, medicaments and biological substances; Z88.6 Allergy status to analgesic agent; Z91.040 Latex allergy status; Z95.1 Presence of aortocoronary bypass graft; Z68.32 Body mass index [BMI] 32.0-32.9, adult; Z83.3 Family history of diabetes mellitus; Z82.49 Family history of ischemic heart disease and other diseases of the circulatory system; Z79.82 Long term (current) use of aspirin; Z79.899 Other long term (current) drug therapy; X58.XXXA Exposure to other specified factors, initial encounter; Y93.89 Activity, other specified; Y92.89 Other specified places as the place of occurrence of the external cause; Y99.8 Other external cause status; Z98.84 Bariatric surgery status
CPT/HCPCS: 10078; 10081; 10879; 32100

== ENCOUNTER → 2020-02-25 | Outpatient (CLI) | payer OTHER, BC | LOC: HYPER 10:04 | PROVIDERS: ATTEND Emergency Medicine | DX: S81.811D Laceration without foreign body, right lower leg, subsequent encounter (principal); L89.610 Pressure ulcer of right heel, unstageable; N18.6 End stage renal disease; R54 Age-related physical debility; L84 Corns and callosities; M06.9 Rheumatoid arthritis, unspecified; I73.00 Raynaud's syndrome without gangrene; Z91.81 History of falling; Z99.2 Dependence on renal dialysis; Z86.718 Personal history of other venous thrombosis and embolism; Z79.82 Long term (current) use of aspirin; Z79.01 Long term (current) use of anticoagulants; X58.XXXD Exposure to other specified factors, subsequent encounter ==